=== PATIENT | male | born 1965 | race Two or more races ===

== ENCOUNTER 2019-01-19 08:46 | Inpatient (IN) | payer MEDICAID, OTHER ==
[2019-01-19] VITALS (31 sets, daily range): BP systolic 115–180; BP diastolic 1–63
[~2019-01-19] VITALS: Ht 170.2 cm; Wt 70.3 kg
[2019-01-19] MEDS ORDERED: SODIUM CHLORIDE 0.9% 1,000 ML IV ONE (09:45)
[2019-01-19] MEDS ORDERED: ONDANSETRON HCL 4 MG/2 ML VIAL IV ONE (09:45)
[2019-01-19] MEDS ORDERED: LABETALOL HCL 5 MG/ML ML 20ML VIAL IV ONE (09:45)
[2019-01-19 09:56] LABS: Basophils # (auto) 0 uL; Basophils % (auto) 0.5 % (0.0-2.0); Eosinophils # (auto) 0.1 uL; Eosinophils % (auto) 1.5 % (0.0-7.0); Hematocrit 32.2 % (41.0-53.0); Hemoglobin 11.3 g/dL (13.5-17.5); Lymphocytes # (auto) 1.5 uL; Lymphocytes % (auto) 28.3 % (10.0-50.0); Mean Corpuscular Hgb Conc. 35.1 g/dL (32.0-36.0); Monocytes # (auto) 0.5 uL; Monocytes % (auto) 10.2 % (0.0-12.0); Neutrophils # (auto) 3.2 uL; Neutrophils % (auto) 59.5 % (37.0-80.0); Nucleated Red Blood Cells % 0.1 %; Platelet Count (auto) 132 10^3/uL (140-450); Red Blood Cells 3.42 10^6/uL (4.5-5.90); Red Cell Distribution Width 13.9 % (11.8-14.3); White Blood Cell 5.3 10^3/uL (4.4-10.8)
[2019-01-19 10:02] LABS: Albumin 3.9 g/dL (3.4-5.0); BUN/Creatinine Ratio 5.5; Calcium 9.1 mg/dL (8.5-10.1); Potassium 3.5 mmol/L (3.5-5.1)
[2019-01-19 10:13] LABS: Bilirubin, Total 0.8 mg/dL (0.2-1.0); Total Protein 7.9 g/dL (6.4-8.2)
[2019-01-19] MEDS ORDERED: ENOXAPARIN SOD 80 MG/0.8ML SYRINGE SC ONE (11:15)
[2019-01-19] MEDS ORDERED: ONDANSETRON HCL 4 MG/2 ML VIAL IV PRN (11:30)
[2019-01-19] MEDS ORDERED: NITROGLYCERIN 0.4 MG SL TAB SL PRN (11:30)
[2019-01-19] MEDS ORDERED: MORPHINE SULF INJ 2 MG/ML SYRINGE 1ML IV PRN ×2 (11:30)
[2019-01-19] MEDS: SEVELAMER 800 MG TAB PO SCH ×2 (12:00→18:40)
[2019-01-19] MEDS ORDERED: NICARDIPINE 25MG/250ML BAG KIT 250 ML IV ONE (12:03)
[2019-01-19] MEDS ORDERED: DEXTROSE (50%) 50ML SYRG IV PRN (12:15)
[2019-01-19] MEDS: NICARDIPINE 25MG/250ML BAG KIT 250 ML IV SCH ×4 (12:15→21:30)
--- NOTE | 2019-01-19 15:10 | NUR ---
BLOOD PRESSURE: BLOOD PRESSURE INCREASED 174/86. INCREASED NICARDIPINE GTT TO 5MG/HR. WILL CONTINUE TO MONITOR. Addendum: 01/19/19 at 1735 by Lesley Casas RN NOT 1510, DONE AT 1610.
--- NOTE | 2019-01-19 15:38 | NUR ---
REPORT: REPORT RECEIVED FROM ER TO RESUME CARE OF PT.
--- NOTE | 2019-01-19 16:03 | NUR ---
ARRIVAL: PT ARRIVED FROM ER AND TRANSFERRED TO ROOM 109 IN ICU. PT BROUGHT VIA ER GURNEY, PORTABLE MONITOR, ALL BELONGINGS AND IV PUMP INFUSION. PT IS ALERT AND ORIENTED X4, MOSTLY [place] SPEAKING. ABLE TO TURN SELF AND REPOSITION SELF IN BED. TRANSFERRED FROM GURNEY TO BED ON OWN. FOLLOWING COMMANDS, DENIES ANY PAIN OR NEEDS AT TIME. ON 2L NC. IV TO RIGHT FOREARM, 20G SL. 2ND IV TO RIGHT FOREARM, 20G RUNNING NICARDIPINE GTT AT 2.5MG/HR. CONNECTED PT TO BEDSIDE MONITOR AND ALL VITAL SIGNS IN STABLE RANGE AT TIME. DENIES CHEST PAIN OR SHORTNESS OF BREATH AT TIME. SHARED POC WITH PT AND ABLE TO UNDERSTAND PLAN OF CARE FOR TIME. CALL LIGHT GIVEN AND IN REACH AND ABLE TO USE. CONTINUE CARE FOR SHIFT.
--- NOTE | 2019-01-19 17:00 | NUR ---
NAUSEA: PER ER REPORT, PATIENT HAVING NAUSEA. NO LONGER HAVING NAUSEA. PROVIDED ICE CHIPS, WATER AND JELLO PER REQUEST.
--- NOTE | 2019-01-19 17:00 | NUR ---
FAMILY: FAMILY IN AT BEDSIDE. UPDATED ON PT STATUS AND AWARE OF CURRENT FINDINGS. ALL QUESTIONS AND CONCERNS ADDRESSED. CONTACT INFORMATION OBTAINED AND PLACED IN CHART. DAUGHTER AT BEDSIDE, EDNA CR.
--- NOTE | 2019-01-19 17:19 | NUR ---
PRACTITIONER PAGE: PAGED BRANDIE HALEY IN REGARDS TO PATIENT HEADACHE AND REQUESTING TYLENOL. WAITING FOR CALL BACK.
--- NOTE | 2019-01-19 17:22 | NUR ---
PRACTITIONER CALL BACK: BRANDIE NUGENT NP CALLED BACK. UPDATED ON PT STATUS AND NEW ORDERS RECEIVED. PLAN TO CARRY OUT.
[2019-01-19] MEDS ORDERED: MORPHINE SULFATE 4 MG/ML SYR/VIAL IV PRN (17:30)
[2019-01-19] MEDS ORDERED: cloNIDine HCL 0.1 MG TAB PO ONE (17:30)
--- NOTE | 2019-01-19 17:44 | NUR ---
HEADACHE: PATIENT STATING THAT HE HAS A HEADACHE. PLAN TO MEDICATE PER ORDERS.
--- NOTE | 2019-01-19 18:30 | NUR ---
UPDATE: PATIENT RESTING WITHOUT ANY COMPLAINTS AT TIME. VITAL SIGNS IN STABLE RANGE AT TIME.
--- NOTE | 2019-01-19 18:35 | NUR ---
HOME MEDS: INSTRUCTED DAUGHTER TO BRING IN LIST OF HOME MEDICATIONS. WILL ATTEMPT TO BRING LIST IN TOMORROW.
--- NOTE | 2019-01-19 18:50 | NUR ---
CLOSING: PT REMAINS ALERT AND ORIENTED X4, OBEYS COMMANDS AND ABLE TO STILL TURN AND REPOSITION IN BED. PT SITTING UP IN BED, EATING DINNER ON OWN. MEDICATED WITH TYLENOL FOR HEADACHE AND ADDITIONAL MEDS PER MD ORDERS. URINAL AT BEDSIDE BUT PT HAS NOT VOIDED AT TIME. NICARDIPINE REMAINS AT 5MG/HR. ALL MONITORS HOOKED UP TO PT STILL AND CALL LIGHT IN REACH.
[2019-01-19] MEDS: ACCU-CHEK COMFORT CURVE STRIP VI SCH ×2 (18:52→22:00)
[2019-01-19] MEDS: InsuLIN REG 1unit/0.01ml Soln (100units/ml) SC SCH ×2 (18:52→22:00)
[2019-01-19] MEDS: ACETAMINOPHEN 500 MG TAB PO PRN (18:53)
--- NOTE | 2019-01-19 19:00 | NUR ---
FAMILY: FAMILY LEFT BEDSIDE.
--- NOTE | 2019-01-19 19:30 | NUR ---
REPORT: REPORT GIVEN TO HOOP MAKER RN TO RESUME CARE OF PT.
--- NOTE | 2019-01-19 19:30 | NUR ---
Opening Shift Note Received pt laying in bed watching TV. Nepali speaking only. Pt alert and oriented times four. Only complains of headache, denies nausea and vomiting at this time. Will medicate for pain PRN. On nicardipine gtt at 5mg/hr. Will titrate gtt to maintain sys blood pressure less than or equal to 140. 2 lpm nasal cannula, saturation 99% with clear lung sounds. 2 IVs to right FA 20 g. Both asymptomatic and patent. See IV spreadsheet for details. Abdomen soft flat and non-tender. Umbilical hernia noted. Denies chest pain at this time. No S/S of distress noted. Call light within reach will continue to monitor closely.
[2019-01-19] MEDS: METOPROLOL TARTRATE 50 MG TAB PO SCH (22:00)
[2019-01-19] MEDS: BENAZEPRIL HCL 10 MG TAB PO SCH (22:31)
[2019-01-20] VITALS (80 sets, daily range): BP systolic 103–198; BP diastolic 24–69
[2019-01-20] MEDS ORDERED: PROPOFOL 100 ML IV ONE (00:41)
--- NOTE | 2019-01-20 06:00 | NUR ---
Nicardipine gtt titrated off at this time. B/P 130/27. Will continue to monitor closely.
[2019-01-20] MEDS: InsuLIN REG 1unit/0.01ml Soln (100units/ml) SC SCH ×4 (07:00→22:11)
[2019-01-20] MEDS: ACCU-CHEK COMFORT CURVE STRIP VI SCH ×4 (07:22→22:11)
--- NOTE | 2019-01-20 07:23 | NUR ---
End of shift Report given to JAMIE Gray to assume care.
[2019-01-20] MEDS: NICARDIPINE 25MG/250ML BAG KIT 250 ML IV SCH ×3 (07:30→12:30)
--- NOTE | 2019-01-20 07:30 | NUR ---
REPORT REPORT RECEIVED FROM HILARY RNKHRIS. BEDSIDE CHECK DONE AND PT RESTING IN BED, DENIES ANY PAIN OR N/V.
--- NOTE | 2019-01-20 08:20 | NUR ---
ASSESSMENT PT AWAKE AND A/O X4. PT CITIZEN OF [place] SPEAKING ONLY. JAMIE RICK, IN TO ASSIST WITH TRANSLATION. PT ABLE TO MOVE ALL EXTREMITIES AND TURN SELF IN BED. DENIES ANY PAIN OR N/V. LUNGS CLEAR THROUGHOUT EXCEPT FOR INSPIRATORY CRACKLES IN THE LLL, POSTERIOR. O2 AT 2 L/M VIA NC WITH O2 SAT OF 99%. TELE SB [address] DEPRESSION IN LEADS I AND II. DENIES ANY PAIN. PALPABLE PULSES TO ALL EXTREMITIES. NO EDEMA NOTED. ABD SOFT WITH ACTIVE BOWEL SOUNDS. LAST BM WAS 01/18. PT IS MOSTLY ANURIC. AV FISTULA TO THE LEFT ARM WITH A + BRUIT AND THRILL. SKIN INTACT EXCEPT FOR ABRASIONS/SCABS TO RIGHT OWENS. SERVED BREAKFAST AND CONTINUE TO MONITOR .
--- NOTE | 2019-01-20 09:55 | NUR ---
ADMINISTERED SCHEDULED MEDS EXCEPT HELD METOPROLOL DUE TO HR OF 58. CURRENT BP OF 181/58.
[2019-01-20] MEDS: SEVELAMER 800 MG TAB PO SCH ×3 (09:56→18:38)
[2019-01-20] MEDS: METOPROLOL TARTRATE 50 MG TAB PO SCH ×2 (09:56→22:11)
[2019-01-20] MEDS: BENAZEPRIL HCL 10 MG TAB PO SCH (09:57)
--- NOTE | 2019-01-20 12:03 | NUR ---
PT RESTING IN BED AND DENIES PAIN, NAUSEA OR VOMITING. BP OF 137/53. ACCUCHECK OF 146 AND ADMINISTERED 2 UNITS OF REGULAR INSULIN SQ PER SLIDING SCALE COVERAGE.
--- NOTE | 2019-01-20 12:48 | NUR ---
DR CHESTER HERE IN THE ICU AND UPDATED ON THE PT'S CONDITION AND THAT WE HAVE NOT BEEN ADMINISTERING THE ORDERED METOPROLOL GERARDO TO HR 50'S. SHE STATED SHE WILL ORDER SOMETHING SHERICE FOR HIS ELEVATED BP. Addendum: 01/20/19 at 1306 by Marina Zuleta RN DR CHESTER AT BEDSIDE AND SPOKE WITH PT UTILIZING THEO, CT, TO TRANSLATE. WILL CHANGE DIET, ORDER CEAPCOL LOZENGES FOR C/O SORE THROAT AND ORDER SOMETHING ADDITIONAL FOR ELEVATED BP.
[2019-01-20] MEDS ORDERED: THROAT LOZENGES(CEPASTAT) MT PRN (13:15)
[2019-01-20] MEDS: hydrALAZINE HCL 25 MG TAB PO SCH ×2 (14:29→22:10)
--- NOTE | 2019-01-20 16:20 | NUR ---
RESTING QUIETLY WITH NO COMPLAINTS. LUNGS WITH INSPIRATORY CRACKLES STILL TO THE LEFT LOWER LOBE.
--- NOTE | 2019-01-20 16:47 | NUR ---
Discharge planning per consult, patient has orders for Home Health. Referral faxed to [facility]. Placed a follow up call, spoke with U[facility] and was advised they will accept this patient and start of care will be within 24-48 hours upon discharge. Obtained auth from [facility]-[id number]. Auth sent to [facility]. Addendum: 01/20/19 at 1649 by FLACA WEAVER Amended: Links added.
--- NOTE | 2019-01-20 17:06 | NUR ---
ACCUCHECK OF 106 AND NO COVERAGE NEEDED. PT DENIES ANY PAIN, SOB OR N/V. AT THE BEDSIDE.
[2019-01-20] MEDS ORDERED: NIFEdipine ER 30 MG TAB PO SCH (18:00)
--- NOTE | 2019-01-20 19:15 | NUR ---
REPORT REPORT GIVEN TO HILARY RNKHRIS. PT RESTING IN BED AND DENIES ANY DISCOMFORT.
--- NOTE | 2019-01-20 19:30 | NUR ---
Report received from day shift RN. Pt eating dinner in bed with no s/s of distress. Full assessment done see interventions. VSS. Instructed pt to call for assist PRN. Pt verbalized understanding.
--- NOTE | 2019-01-20 20:00 | NUR ---
Family at bedside. All questions and concerns addressed at this time.
[2019-01-20] MEDS: ACETAMINOPHEN 500 MG TAB PO PRN (20:08)
--- NOTE | 2019-01-20 21:30 | NUR ---
ELIMINATION PT REQUESTING TO GET UP AND USE THE BEDSIDE COMMODE. ASSESSED PT'S ABILITY TO STAND AND IF EXPERIENCING ANY DIZZINESS. PT DENIES DIZZINESS AND GAIT IS STEADY. ASSISTED PT TO BEDSIDE COMMODE AND ALLOWED PT PRIVACY. PT HAD 1 BM. ASSISTED BACK TO BED WITHOUT ANY PROBLEMS.
[2019-01-21] VITALS (25 sets, daily range): BP systolic 89–165; BP diastolic 40–129
[2019-01-21 04:41] LABS: BUN/Creatinine Ratio 6.6; Calcium 8.2 mg/dL (8.5-10.1); Potassium 5.5 mmol/L (3.5-5.1)
[2019-01-21] MEDS: hydrALAZINE HCL 25 MG TAB PO SCH ×2 (06:00→14:00)
[2019-01-21] MEDS: ACCU-CHEK COMFORT CURVE STRIP VI SCH ×2 (06:27→11:30)
[2019-01-21] MEDS: InsuLIN REG 1unit/0.01ml Soln (100units/ml) SC SCH ×2 (06:27→11:30)
--- NOTE | 2019-01-21 06:29 | NUR ---
DIALYSIS NURSE AT BEDSIDE, AWARE OF PT'S LOW BLOOD PRESSURE THROUGHOUT THE NIGHT. CURRENTLY 112/47.
[2019-01-21] MEDS ORDERED: SODIUM CHL 0.9% 1000 ML BAG XX ONE (07:00)
[2019-01-21] MEDS: SEVELAMER 800 MG TAB PO SCH ×2 (08:00→12:00)
[2019-01-21] MEDS ORDERED: BENAZEPRIL HCL 10 MG TAB PO SCH (10:00)
--- NOTE | 2019-01-21 11:21 | NUR ---
DIALYSIS NURSE AT BEDSIDE. BP STABLE IN 130'S. PT DENIES ANY DISCOMFORT AT THIS TIME.
--- NOTE | 2019-01-21 12:00 | NUR ---
DIALYSIS NURSE UNABLE TO ACCESS LEFT ARM AV FISTULA. PATIENT HAVING SEVERE PAIN TO LEFT ARM. TAPE RELEASED, NO BLEEDING NOTED. ICE PACK APPLIED TO LEFT ARM. COVERING NURSE CICI WILL ARRIVE IN 45MIN AND AWARE OF PATIENTS PAIN. POSITIVE BRUIT AND THRILL, SITE ASYMPTOMATIC, NO HEMATOMA OF ABNORMALITIES NOTED, ONLY TENDER TO TOUCH.
--- NOTE | 2019-01-21 12:52 | NUR ---
DR. AQUILES DOHERTY TO NOTIFIED OF HOME MEDICATION LIST CLARIFICATION PATIENT HAS HOME MED LIST. Addendum: 01/21/19 at 1549 by Olga Diaz RN HOME MEDICATION REVIEWED. SEE D/C ORDERS AND MEDIATION LIST TO CONTINUE.
[2019-01-21] MEDS ORDERED: FERR1TAB17 PO (13:03)
[2019-01-21] MEDS ORDERED: INSU1INJ19 SC (13:03)
[2019-01-21] MEDS ORDERED: ACET-1156 PO (13:03)
[2019-01-21] MEDS ORDERED: ATO40T PO (13:03)
[2019-01-21] MEDS ORDERED: SEVE800T8 PO (13:03)
[2019-01-21] MEDS ORDERED: AML5T PO (13:05)
[2019-01-21] MEDS ORDERED: CLON0.1T PO (13:05)
[2019-01-21] MEDS ORDERED: LISI-646 PO (13:10)
--- NOTE | 2019-01-21 13:50 | NUR ---
Left arm AV fistula distal to patient note to be tender with slight hematoma. Ice pack remains in place. Positive bruit and thrill. Will continue to monitor.
--- NOTE | 2019-01-21 14:00 | NUR ---
DR. KWAN UPDATED ON HOME MEDIATION LIST. AWARE LEFT ARM AV FISTULA IS INFILTRATED PER [facility] DIALYSIS NURSE. DIALYSIS TO BE HELD TODAY. DR. KWAN AWARE. CONTACTED DR. CHESTER WELL CCII RN. PER DR. CHESTER AND DR. KWAN PATIENT HAS BEEN ADDED ON LIST FOR DIALYSIS AT [facility] ON 01/22 AT 0800 AT [facility] ON [address]. PATIENT HAS RECEIVED A CONFIRMATION FROM [facility] VIA PHONE WHILE PRIMARY NURSE AT BEDSIDE FOR CHAIR TIME TOMORROW AT 0800.
--- NOTE | 2019-01-21 14:29 | NUR ---
[facility] CONTACTED [facility] CALLED TO DETERMINE IF THERE IS A CHAIR TIME FOR PATIENT TOMORROW WHILE ARM SWELLING SUBSIDES. [facility] STATING THEY WILL ACCEPT HIM FOR DIALYSIS AT 8 A.M AT HIS CENTER ON [address]. TOMORROW. KAYEXALATE TO BE GIVEN BEFORE D/C. Addendum: 01/21/19 at 1552 by Olga Diaz RN ERIN KAYEXALATE IS NOT AVAILABLE.
[2019-01-21] MEDS ORDERED: SODIUM ZIRCONIUM CYCL 10 GM PAK PO ONE (14:45)
[2019-01-21] MEDS: METOPROLOL TARTRATE 50 MG TAB PO SCH (15:26)
--- NOTE | 2019-01-21 15:52 | NUR ---
LEFT ARM CONTINUES TO BE SLIGHTLY TENDER, ICE PACK INSTRUCTED BY C[facility]I AYALA DIALYSIS NURSE TO APPLY ICE PK FOR 15 MIN ON AND 1HR OFF. PATIENT VERBALIZED UNDERSTANDING.
--- NOTE | 2019-01-21 15:53 | NUR ---
HOME PRESCRIPTION PROVIDED TO JESSICA SIGNIFICANT OTHER AT BEDSIDE TO GET MEDICATION FILLED AT [facility].
[2019-01-21] MEDS ORDERED: BENA-30 PO (16:10)
[2019-01-21] MEDS ORDERED: METO25TA5 PO (16:10)
[2019-01-21] MEDS ORDERED: HYDR50TA15 PO (16:11)
--- NOTE | 2019-01-21 16:52 | NUR ---
Discharge instructions given as ordered. Encourage to follow up with PMD as instructed. All questions and concerns addressed. Patient verbalized understanding. IV removed with catheter intact, pressure dressing applied. Patient taken to vehicle via wheelchair with all personal belongings, accompanied by staff and family member. No distress noted at time of departure. PATIENT NOTIFIED TO RETURN TO ER IF LEFT ARM WORSENS OR BECOMES MORE SWOLLEN. PT AND FAMILY VERBALIZED UNDERSTANDING. PAIN HAS SUBSIDED COMPARED TODAY.
== END 2019-01-21 16:52 | disposition home or self-care (01) | DRG 199 ==
LOC: EDBD 08:46 → ER 08:46 → TELE 08:47 → ICU WEST 15:04
PROVIDERS: ADMIT Nurse Practitioner Acute Care; ATTEND Hospitalist
DX: I16.9 Hypertensive crisis, unspecified (principal); D69.6 Thrombocytopenia, unspecified; E11.22 Type 2 diabetes mellitus with diabetic chronic kidney disease; I13.11 Hypertensive heart and chronic kidney disease without heart failure, with stage 5 chronic kidney disease, or end stage renal disease; N18.6 End stage renal disease; D63.8 Anemia in other chronic diseases classified elsewhere; E78.5 Hyperlipidemia, unspecified; M10.9 Gout, unspecified; Z99.2 Dependence on renal dialysis; Z79.4 Long term (current) use of insulin; Z91.19 Patient's noncompliance with other medical treatment and regimen
CPT/HCPCS: 36415; 74176; 80048; 80053; 82962; 83690; 84484; 85025; 87081; 93005; 93306; 94761; 96372; 96374; 96375; 99291; G0378; J1642; J1815; J2405; J2704

== ENCOUNTER 2019-05-08 18:34 | Inpatient (IN) | payer MEDICAID ==
[~2019-05-08] VITALS: Ht 162.6 cm; Wt 68.1 kg
[~2019-05-08 18:34] MED LIST: ACET-1156 PO; ATO40T PO; BENZ100C97 PO; CLON0.1T PO; FERR1TAB17 PO; HYDR50TA15 PO; INSU1INJ19 SC; METO25TA5 PO; NIFE1TAB31 PO; SEVE800T8 PO
[2019-05-08 19:35] LABS: Basophils # (auto) 0.1 uL; Basophils % (auto) 0.8 % (0.0-2.0); Eosinophils # (auto) 0.1 uL; Eosinophils % (auto) 1.2 % (0.0-7.0); Hematocrit 38.4 % (41.0-53.0); Hemoglobin 12.7 g/dL (13.5-17.5); Lymphocytes # (auto) 0.9 uL; Lymphocytes % (auto) 10.1 % (10.0-50.0); Mean Corpuscular Hemoglobin 32.4 pg (28.0-32.0); Mean Corpuscular Volume 98.3 fL (80.0-100.0); Monocytes # (auto) 0.6 uL; Monocytes % (auto) 6.6 % (0.0-12.0); Neutrophils # (auto) 7.1 uL; Neutrophils % (auto) 81.3 % (37.0-80.0); Nucleated Red Blood Cells % 0.1 %; Platelet Count (auto) 171 10^3/uL (140-450); Red Blood Cells 3.91 10^6/uL (4.5-5.90); Red Cell Distribution Width 14.9 % (11.8-14.3); White Blood Cell 8.8 10^3/uL (4.4-10.8)
[2019-05-08 19:45] LABS: INR 1.01 (0.9-1.15); Partial Thromboplastin Time 26.2 sec (23.64-32.05)
[2019-05-08 20:00] LABS: Albumin 4.2 g/dL (3.4-5.0); Calcium 9.2 mg/dL (8.5-10.1)
[2019-05-08 20:07] LABS: BUN/Creatinine Ratio 6.5
[2019-05-08 21:24] LABS: Potassium 7.3 mmol/L (3.5-5.1)
[2019-05-08] MEDS ORDERED: DEXTROSE (50%) 50ML SYRG IV ONE (22:00)
[2019-05-08] MEDS ORDERED: ALBUTEROL SULF 2.5 MG/0.5ML(0.5%) NEB SOLN NEB ONE (22:00)
[2019-05-08] MEDS ORDERED: InsuLIN REG 1unit/0.01ml Soln (100units/ml) IV ONE (22:00)
[2019-05-08] MEDS ORDERED: SODIUM BICARBONATE 8.4% INJ 50ML SYRINGE IV ONE (22:00)
[2019-05-08] MEDS ORDERED: CALCIUM GLUC 4.65meq/50ml D5AE 50 ML IV ONE (22:15)
[2019-05-08] MEDS ORDERED: SODIUM ZIRCONIUM CYCL 10 GM PAK PO ONE (22:15)
[2019-05-09] VITALS (7 sets, daily range): BP systolic 137–196; BP diastolic 63–94
[2019-05-09] MEDS ORDERED: FUROSEMIDE 40 MG/4 ML VIAL IV ONE (00:15)
[2019-05-09 01:01] LABS: Potassium 4.9 mmol/L (3.5-5.1)
[2019-05-09] MEDS ORDERED: DOCUSATE SOD 100 MG CAP PO PRN (01:30)
[2019-05-09] MEDS ORDERED: DEXTROSE (50%) 50ML SYRG IV PRN ×2 (01:30→12:30)
[2019-05-09] MEDS ORDERED: ACETAMINOPHEN 325 MG TAB PO PRN (01:30)
[2019-05-09] MEDS ORDERED: MORPHINE SULFATE 4 MG/ML SYR/VIAL IV PRN (01:30)
[2019-05-09] MEDS ORDERED: HYDROcodone-ACET 5/325MG TAB PO PRN (01:30)
[2019-05-09] MEDS ORDERED: cloNIDine HCL 0.1 MG TAB PO PRN (01:30)
[2019-05-09] MEDS ORDERED: ONDANSETRON HCL 4 MG/2 ML VIAL IV PRN (01:30)
[2019-05-09] MEDS: ACCU-CHEK COMFORT CURVE STRIP VI SCH ×4 (03:45→17:58)
[2019-05-09] MEDS ORDERED: NIFEdipine ER 30 MG TAB PO ONE (04:00)
[2019-05-09] MEDS: InsuLIN REG 1unit/0.01ml Soln (100units/ml) SC SCH ×5 (04:00→22:00)
[2019-05-09] MEDS ORDERED: hydrALAZINE HCL 25 MG TAB PO ONE (04:00)
[2019-05-09] MEDS ORDERED: METOPROLOL TARTRATE 25 MG TAB PO ONE (04:00)
[2019-05-09] MEDS ORDERED: BENZ100C97 PO (04:49)
[2019-05-09] MEDS ORDERED: FERR1TAB17 PO (04:49)
[2019-05-09] MEDS ORDERED: B-CO-5 PO (04:49)
[2019-05-09] MEDS ORDERED: BENA20TA14 PO (04:49)
[2019-05-09] MEDS ORDERED: MECL-87 PO (04:49)
[2019-05-09] MEDS ORDERED: ACET-1156 PO (04:49)
[2019-05-09] MEDS ORDERED: METO25TA5 PO (04:49)
[2019-05-09] MEDS ORDERED: AMLO10TA13 PO (04:49)
[2019-05-09] MEDS ORDERED: SPIR25TA8 PO (04:49)
[2019-05-09] MEDS ORDERED: CLON0.1T PO (04:49)
[2019-05-09] MEDS: hydrALAZINE HCL 25 MG TAB PO SCH ×3 (05:22→22:00)
[2019-05-09 08:03] LABS: Basophils # (auto) 0 uL; Basophils % (auto) 0.3 % (0.0-2.0); Eosinophils # (auto) 0 uL; Eosinophils % (auto) 0.8 % (0.0-7.0); Hematocrit 33.3 % (41.0-53.0); Hemoglobin 11.2 g/dL (13.5-17.5); Lymphocytes # (auto) 1.1 uL; Lymphocytes % (auto) 17.9 % (10.0-50.0); Mean Corpuscular Hemoglobin 32.9 pg (28.0-32.0); Mean Corpuscular Hgb Conc. 33.6 g/dL (32.0-36.0); Monocytes # (auto) 0.5 uL; Monocytes % (auto) 8.7 % (0.0-12.0); Neutrophils # (auto) 4.6 uL; Neutrophils % (auto) 72.3 % (37.0-80.0); Platelet Count (auto) 124 10^3/uL (140-450); White Blood Cell 6.3 10^3/uL (4.4-10.8)
[2019-05-09] MEDS: SEVELAMER 800 MG TAB PO SCH ×3 (08:13→17:59)
[2019-05-09 08:16] LABS: Calcium 9.1 mg/dL (8.5-10.1)
[2019-05-09 08:18] LABS: BUN/Creatinine Ratio 6.4
[2019-05-09 08:23] LABS: Potassium 6.3 mmol/L (3.5-5.1)
[2019-05-09] MEDS: METOPROLOL TARTRATE 25 MG TAB PO SCH ×2 (10:22→23:08)
[2019-05-09] MEDS: NIFEdipine ER 30 MG TAB PO SCH (10:22)
[2019-05-09] MEDS ORDERED: ENOXAPARIN SOD 80 MG/0.8ML SYRINGE SC ONE (12:30)
[2019-05-09] MEDS ORDERED: SODIUM CHL 0.9% 1000 ML BAG XX ONE (13:15)
[2019-05-09] MEDS ORDERED: ATORVASTATIN 20 MG TAB PO SCH (22:00)
[2019-05-10] MEDS: ACCU-CHEK COMFORT CURVE STRIP VI SCH ×3 (02:43→12:10)
[2019-05-10 05:22] VITALS: BP 131/60
[2019-05-10 06:01] LABS: Basophils # (auto) 0 uL; Basophils % (auto) 0.8 % (0.0-2.0); Eosinophils # (auto) 0.1 uL; Eosinophils % (auto) 1.5 % (0.0-7.0); Hematocrit 35.4 % (41.0-53.0); Hemoglobin 11.8 g/dL (13.5-17.5); Lymphocytes # (auto) 1.2 uL; Lymphocytes % (auto) 19.6 % (10.0-50.0); Mean Corpuscular Hemoglobin 32.9 pg (28.0-32.0); Mean Corpuscular Hgb Conc. 33.4 g/dL (32.0-36.0); Mean Corpuscular Volume 98.5 fL (80.0-100.0); Monocytes # (auto) 0.4 uL; Neutrophils # (auto) 4.5 uL; Neutrophils % (auto) 71.1 % (37.0-80.0); Nucleated Red Blood Cells % 0.1 %; Platelet Count (auto) 141 10^3/uL (140-450); Red Cell Distribution Width 14.9 % (11.8-14.3); White Blood Cell 6.3 10^3/uL (4.4-10.8)
[2019-05-10] MEDS: hydrALAZINE HCL 25 MG TAB PO SCH ×2 (06:09→14:32)
[2019-05-10] MEDS: InsuLIN REG 1unit/0.01ml Soln (100units/ml) SC SCH ×2 (06:09→11:30)
[2019-05-10 06:27] LABS: Potassium 5.4 mmol/L (3.5-5.1)
[2019-05-10 06:40] LABS: BUN/Creatinine Ratio 5.3; Calcium 8.8 mg/dL (8.5-10.1)
[2019-05-10] MEDS: SEVELAMER 800 MG TAB PO SCH ×2 (08:12→12:09)
[2019-05-10 09:00] VITALS: BP 103/53
[2019-05-10] MEDS ORDERED: SODIUM ZIRCONIUM CYCL 10 GM PAK PO ONE (09:15)
[2019-05-10] MEDS: METOPROLOL TARTRATE 25 MG TAB PO SCH (09:56)
[2019-05-10] MEDS: NIFEdipine ER 30 MG TAB PO SCH (09:57)
[2019-05-10 13:00] VITALS: BP 121/63
[2019-05-10 14:44] VITALS: BP 134/67
[2019-05-10 16:36] VITALS: BP 110/63
[2019-05-11] MEDS ORDERED: SODIUM CHL 0.9% 1000 ML BAG XX ONE (07:00)
== END 2019-05-10 17:00 | disposition home or self-care (01) | DRG 425 ==
LOC: ER 18:34 → TELE 18:35 → TELE-WESTW 05-09 02:59
PROVIDERS: ADMIT Hospitalist; ATTEND Internal Medicine
PROC: 5A1D70Z Performance of Urinary Filtration, Intermittent, Less than 6 Hours Per Day (ICD-10-PCS; principal; 2019-05-09)
DX: E87.5 Hyperkalemia (principal); I13.2 Hypertensive heart and chronic kidney disease with heart failure and with stage 5 chronic kidney disease, or end stage renal disease; E11.22 Type 2 diabetes mellitus with diabetic chronic kidney disease; N18.6 End stage renal disease; I50.33 Acute on chronic diastolic (congestive) heart failure; Z99.2 Dependence on renal dialysis; M79.605 Pain in left leg; E78.5 Hyperlipidemia, unspecified
CPT/HCPCS: 36415; 71045; 80048; 80053; 82962; 83036; 83880; 84132; 84484; 85025; 85610; 85730; 87081; 93005; 93971; 94640; 96365; 96375; G0378; J0610; J1642; J1815

== ENCOUNTER 2019-07-18 08:35 | Inpatient (IN) | payer MEDICAID, SELFPAY ==
[~2019-07-18] VITALS: Ht 162.6 cm; Wt 76.5 kg
[~2019-07-18 08:35] MED LIST changes: +AMLO10TA13 PO; -ATO40T PO; +B-CO-5 PO; +BENA20TA14 PO; -HYDR50TA15 PO; +MECL25TA18 PO; +SPIR25TA8 PO
[2019-07-18] MEDS ORDERED: PROCHLORPERAZINE EDISYLATE 5 MG/ML 2ML VIAL IV ONE (09:00)
[2019-07-18 09:59] LABS: Eosinophils # (auto) 0 10 ^3/uL (0-0.8); Eosinophils % (auto) 0.3 % (0.0-7.0); Lymphocytes # (auto) 0.3 10 ^3/uL (0.4-5.4); Mean Corpuscular Volume 101.4 fL (80.0-100.0)
[2019-07-18 10:00] LABS: Basophils # (auto) 0.1 10 ^3/uL (0-0.2); Basophils % (auto) 0.7 % (0.0-2.0); Hematocrit 31.3 % (41.0-53.0); Hemoglobin 10.4 g/dL (13.5-17.5); Lymphocytes % (auto) 4.1 % (10.0-50.0); Mean Corpuscular Hemoglobin 33.8 pg (28.0-32.0); Mean Corpuscular Hgb Conc. 33.4 g/dL (32.0-36.0); Monocytes # (auto) 0.5 10 ^3/uL (0-1.3); Monocytes % (auto) 5.5 % (0.0-12.0); Neutrophils # (auto) 7.4 10 ^3/uL (1.6-8.6); Neutrophils % (auto) 89.4 % (37.0-80.0); Platelet Count (auto) 152 10^3/uL (140-450); Red Blood Cells 3.08 10^6/uL (4.5-5.90); Red Cell Distribution Width 15.3 % (11.8-14.3); White Blood Cell 8.3 10^3/uL (4.4-10.8)
[2019-07-18 10:22] LABS: Albumin 3.6 g/dL (3.4-5.0); Calcium 9.3 mg/dL (8.5-10.1); Magnesium 2.9 mg/dL (1.6-2.6); Potassium 3.6 mmol/L (3.5-5.1)
[2019-07-18 10:29] LABS: BUN/Creatinine Ratio 5.2; Bilirubin, Total 1.3 mg/dL (0.2-1.0); Total Protein 7.2 g/dL (6.4-8.2)
[2019-07-18] MEDS ORDERED: NITROGLYCERIN 0.4 MG SL TAB SL PRN (12:00)
[2019-07-18] MEDS ORDERED: DEXTROSE (50%) 50ML SYRG IV PRN (12:00)
[2019-07-18] MEDS ORDERED: ONDANSETRON HCL 4 MG/2 ML VIAL IV PRN (12:00)
[2019-07-18] MEDS ORDERED: MORPHINE SULF INJ 2 MG/ML SYRINGE 1ML IV PRN ×2 (12:00)
[2019-07-18] MEDS ORDERED: HYDROcodone-ACET 5/325MG TAB PO PRN (12:00)
[2019-07-18] MEDS ORDERED: hydrALAZINE HCL 20 MG/ML VL IV PRN (12:00)
[2019-07-18] MEDS ORDERED: ACETAMINOPHEN 500 MG TAB PO PRN (12:00)
[2019-07-18] MEDS ORDERED: FAMOTIDINE 20 MG TAB PO ONE (12:30)
[2019-07-18] MEDS ORDERED: LISINOPRIL 10 MG TAB PO ONE (12:30)
[2019-07-18] MEDS ORDERED: METOPROLOL TARTRATE 25 MG TAB PO ONE (12:30)
[2019-07-18 13:36] LABS: Cholesterol 224 mg/dL (< 200); HDL Cholesterol 77 mg/dL (40-59); LDL Cholesterol 109 mg/dL (< 100); Triglycerides 165 mg/dL (< 150)
[2019-07-18 16:31] VITALS: BP 154/54
[2019-07-18] MEDS: ACCU-CHEK COMFORT CURVE STRIP VI SCH ×2 (19:06→23:20)
[2019-07-18] MEDS: InsuLIN REG 1unit/0.01ml Soln (100units/ml) SC SCH ×2 (19:06→22:00)
[2019-07-18 20:05] VITALS: BP 147/60
[2019-07-18] MEDS ORDERED: ATORVASTATIN 20 MG TAB PO SCH (22:00)
[2019-07-18] MEDS: METOPROLOL TARTRATE 25 MG TAB PO SCH (23:19)
[2019-07-19] MEDS: InsuLIN REG 1unit/0.01ml Soln (100units/ml) SC SCH ×2 (07:00→11:30)
[2019-07-19] MEDS: ACCU-CHEK COMFORT CURVE STRIP VI SCH ×2 (07:55→15:09)
[2019-07-19 09:00] VITALS: BP 132/46
[2019-07-19] MEDS: METOPROLOL TARTRATE 25 MG TAB PO SCH (09:14)
[2019-07-19] MEDS ORDERED: ASPirin 81 mg TAB PO SCH (10:00)
[2019-07-19] MEDS ORDERED: ASPirin-EC 81 mg tab PO SCH (10:00)
[2019-07-19] MEDS ORDERED: ISOSORBIDE MONONITRATE ER 60 MG TAB PO SCH (10:00)
[2019-07-19] MEDS ORDERED: LISINOPRIL 10 MG TAB PO SCH (10:00)
[2019-07-19] MEDS ORDERED: FAMOTIDINE 20 MG TAB PO SCH (10:00)
[2019-07-19 10:35] LABS: Basophils # (auto) 0.1 10 ^3/uL (0-0.2); Basophils % (auto) 0.9 % (0.0-2.0); Eosinophils # (auto) 0.1 10 ^3/uL (0-0.8); Eosinophils % (auto) 1.9 % (0.0-7.0); Hematocrit 31.1 % (41.0-53.0); Hemoglobin 10.4 g/dL (13.5-17.5); Lymphocytes # (auto) 1.4 10 ^3/uL (0.4-5.4); Mean Corpuscular Hemoglobin 34.2 pg (28.0-32.0); Mean Corpuscular Hgb Conc. 33.5 g/dL (32.0-36.0); Monocytes # (auto) 0.4 10 ^3/uL (0-1.3); Neutrophils # (auto) 4.2 10 ^3/uL (1.6-8.6); Neutrophils % (auto) 68.2 % (37.0-80.0); Platelet Count (auto) 155 10^3/uL (140-450); Red Blood Cells 3.05 10^6/uL (4.5-5.90); Red Cell Distribution Width 15.3 % (11.8-14.3); White Blood Cell 6.2 10^3/uL (4.4-10.8)
[2019-07-19 10:56] LABS: Calcium 8.6 mg/dL (8.5-10.1)
[2019-07-19 11:00] LABS: INR 1.02 (0.9-1.15); Partial Thromboplastin Time 27.4 sec (23.64-32.05)
[2019-07-19 11:01] LABS: BUN/Creatinine Ratio 5.8
[2019-07-19 17:03] VITALS: BP 152/67
== END 2019-07-19 18:02 | disposition home or self-care (01) | DRG 194 ==
LOC: EDBD 08:35 → ER 08:35 → TELE 08:36 → TELE-EAST 13:18
PROVIDERS: ADMIT Nurse Practitioner Acute Care; ATTEND Internal Medicine
DX: I13.2 Hypertensive heart and chronic kidney disease with heart failure and with stage 5 chronic kidney disease, or end stage renal disease (principal); I21.A1 Myocardial infarction type 2; E11.22 Type 2 diabetes mellitus with diabetic chronic kidney disease; N18.6 End stage renal disease; I07.1 Rheumatic tricuspid insufficiency; K52.9 Noninfective gastroenteritis and colitis, unspecified; I50.43 Acute on chronic combined systolic (congestive) and diastolic (congestive) heart failure; D63.8 Anemia in other chronic diseases classified elsewhere; E78.00 Pure hypercholesterolemia, unspecified; R79.89 Other specified abnormal findings of blood chemistry; R11.2 Nausea with vomiting, unspecified; Z99.2 Dependence on renal dialysis; Z88.8 Allergy status to other drugs, medicaments and biological substances; Z79.899 Other long term (current) drug therapy; Z83.3 Family history of diabetes mellitus
CPT/HCPCS: 36415; 71045; 80048; 80053; 80061; 82962; 83036; 83605; 83735; 84484; 85025; 85610; 85730; 86141; 87040; 87070; 87081; 87804; 87807; 87880; 93005; 93886; 96374; 99291; G0378; J1815

== ENCOUNTER 2019-09-21 11:34 | Inpatient (IN) | payer MEDICAID, SELFPAY ==
[~2019-09-21] VITALS: Ht 162.6 cm; Wt 63.2 kg
[2019-09-21] MEDS ORDERED: cloNIDine HCL 0.1 MG TAB ONE (11:52)
[2019-09-21] MEDS ORDERED: cloNIDine HCL 0.1 MG TAB PO ONE (12:00)
[2019-09-21 13:07] LABS: Basophils # (auto) 0 10 ^3/uL (0-0.2); Basophils % (auto) 0.4 % (0.0-2.0); Eosinophils # (auto) 0.1 10 ^3/uL (0-0.8); Eosinophils % (auto) 1.1 % (0.0-7.0); Hematocrit 33.2 % (41.0-53.0); Hemoglobin 11.1 g/dL (13.5-17.5); Lymphocytes # (auto) 0.5 10 ^3/uL (0.4-5.4); Lymphocytes % (auto) 9.5 % (10.0-50.0); Mean Corpuscular Hemoglobin 33.2 pg (28.0-32.0); Mean Corpuscular Hgb Conc. 33.5 g/dL (32.0-36.0); Mean Corpuscular Volume 99.1 fL (80.0-100.0); Monocytes # (auto) 0.4 10 ^3/uL (0-1.3); Monocytes % (auto) 8.3 % (0.0-12.0); Neutrophils # (auto) 4.1 10 ^3/uL (1.6-8.6); Neutrophils % (auto) 80.7 % (37.0-80.0); Platelet Count (auto) 101 10^3/uL (140-450); Red Blood Cells 3.35 10^6/uL (4.5-5.90); Red Cell Distribution Width 14.4 % (11.8-14.3); White Blood Cell 5.1 10^3/uL (4.4-10.8)
[2019-09-21 13:24] LABS: Potassium 4.3 mmol/L (3.5-5.1)
[2019-09-21 13:33] LABS: Albumin 3.9 g/dL (3.4-5.0); BUN/Creatinine Ratio 5.1; Bilirubin, Total 0.7 mg/dL (0.2-1.0); Calcium 9.6 mg/dL (8.5-10.1); Magnesium 3.4 mg/dL (1.6-2.6); Total Protein 7.8 g/dL (6.4-8.2)
[2019-09-21] MEDS ORDERED: ASPirin-EC 81 mg tab PO ONE (14:30)
[2019-09-21 15:14] LABS: INR 0.98 (0.9-1.15); Partial Thromboplastin Time 26.3 sec (23.64-32.05)
[2019-09-21] MEDS ORDERED: MORPHINE SULF INJ 2 MG/ML SYRINGE 1ML IV PRN ×2 (16:45)
[2019-09-21] MEDS ORDERED: DEXTROSE (50%) 50ML SYRG IV PRN (16:45)
[2019-09-21] MEDS ORDERED: HYDROcodone-ACET 5/325MG TAB PO PRN (16:45)
[2019-09-21] MEDS ORDERED: NITROGLYCERIN 0.4 MG SL TAB SL PRN (16:45)
[2019-09-21] MEDS ORDERED: ONDANSETRON HCL 4 MG/2 ML VIAL IV PRN (16:45)
[2019-09-21] MEDS ORDERED: hydrALAZINE HCL 20 MG/ML VL IV PRN (16:45)
[2019-09-21] MEDS ORDERED: ACETAMINOPHEN 500 MG TAB PO PRN (16:45)
[2019-09-21] MEDS: InsuLIN REG 1unit/0.01ml Soln (100units/ml) SC SCH ×2 (17:00→22:20)
[2019-09-21] MEDS: ACCU-CHEK COMFORT CURVE STRIP VI SCH ×2 (17:20→22:22)
[2019-09-21] MEDS: SEVELAMER 800 MG TAB PO SCH (18:51)
[2019-09-21 22:00] VITALS: BP 135/50
[2019-09-21] MEDS ORDERED: INSULIN LANTUS (GLARGINE) 1 /0.01ml (100units/ml) SC SCH (22:00)
[2019-09-21] MEDS ORDERED: ATORVASTATIN 20 MG TAB PO SCH (22:00)
[2019-09-21] MEDS ORDERED: METOPROLOL TARTRATE 25 MG TAB PO SCH (22:00)
--- NOTE | 2019-09-21 22:00 | NUR ---
Telemetry admit from PARAMJIT ORTEGA admitted to Telemetry unit after SBAR received. Patient oriented to Nishi Nieves, primary RN, unit, room, bed, and unit policies regarding patient care and visiting hours. Patient now on continuous telemetry monitoring, tele box # 79 and telemetry reading on arrival to unit is 60. Patient placed on bedside oxygen, weighed by bedscale and encouraged to call if they need something. All questions and concerns addressed, patient verbalized understanding. Note:
[2019-09-22 05:00] VITALS: BP 125/58
[2019-09-22 06:03] LABS: Basophils # (auto) 0 10 ^3/uL (0-0.2); Basophils % (auto) 0.5 % (0.0-2.0); Eosinophils # (auto) 0.1 10 ^3/uL (0-0.8); Eosinophils % (auto) 2.3 % (0.0-7.0); Hemoglobin 11.4 g/dL (13.5-17.5); Lymphocytes # (auto) 1.3 10 ^3/uL (0.4-5.4); Lymphocytes % (auto) 25.5 % (10.0-50.0); Mean Corpuscular Hemoglobin 33.4 pg (28.0-32.0); Mean Corpuscular Hgb Conc. 33.6 g/dL (32.0-36.0); Mean Corpuscular Volume 99.5 fL (80.0-100.0); Monocytes # (auto) 0.5 10 ^3/uL (0-1.3); Monocytes % (auto) 9.3 % (0.0-12.0); Neutrophils # (auto) 3.1 10 ^3/uL (1.6-8.6); Neutrophils % (auto) 62.4 % (37.0-80.0); Platelet Count (auto) 110 10^3/uL (140-450); Red Blood Cells 3.42 10^6/uL (4.5-5.90); Red Cell Distribution Width 14.2 % (11.8-14.3)
[2019-09-22] MEDS: ACCU-CHEK COMFORT CURVE STRIP VI SCH ×2 (06:06→11:30)
[2019-09-22] MEDS: InsuLIN REG 1unit/0.01ml Soln (100units/ml) SC SCH ×2 (06:06→11:30)
[2019-09-22 06:20] LABS: Potassium 5.4 mmol/L (3.5-5.1)
[2019-09-22 06:32] LABS: BUN/Creatinine Ratio 6.1; Calcium 9.5 mg/dL (8.5-10.1)
[2019-09-22 08:00] VITALS: BP 130/59
[2019-09-22] MEDS: SEVELAMER 800 MG TAB PO SCH ×2 (08:46→12:08)
[2019-09-22] MEDS ORDERED: LISINOPRIL 10 MG TAB PO SCH (10:00)
[2019-09-22] MEDS ORDERED: ASPirin-EC 81 mg tab PO SCH (10:00)
--- NOTE | 2019-09-22 13:40 | NUR ---
DR CONTRERAS ROUNDING
[2019-09-22 14:00] VITALS: BP 151/71
[2019-09-22] MEDS ORDERED: ASP81EC PO (14:54)
[2019-09-22] MEDS ORDERED: ATOR10TA52 PO (14:59)
[2019-09-22 15:53] VITALS: BP 151/71
--- NOTE | 2019-09-22 16:57 | NUR ---
Discharge instructions given as ordered. Encourage to follow up with PMD as instructed. All questions and concerns addressed. Patient verbalized understanding. Medication reconciliation form completed and copy given to patient. No Home medications held in Pharmacy and none to be returned to patient, and no needed vaccines given. IV removed with catheter intact, pressure dressing applied. Telemetry unit returned to ICU. Patient taken to vehicle via wheelchair with all personal belongings, accompanied by staff and family member. No distress noted at time of departure.
== END 2019-09-22 17:00 | disposition home or self-care (01) | DRG 470 ==
LOC: ER 11:34 → TELE 11:35 → TELE-WESTW 21:29
PROVIDERS: ADMIT Nurse Practitioner Acute Care; ATTEND Internal Medicine
DX: I12.0 Hypertensive chronic kidney disease with stage 5 chronic kidney disease or end stage renal disease (principal); I21.A1 Myocardial infarction type 2; D69.6 Thrombocytopenia, unspecified; E11.22 Type 2 diabetes mellitus with diabetic chronic kidney disease; N18.6 End stage renal disease; G62.9 Polyneuropathy, unspecified; R55 Syncope and collapse; Z99.2 Dependence on renal dialysis; D63.8 Anemia in other chronic diseases classified elsewhere; I16.9 Hypertensive crisis, unspecified; F41.9 Anxiety disorder, unspecified; Z79.4 Long term (current) use of insulin; Z83.3 Family history of diabetes mellitus; F32.9 Major depressive disorder, single episode, unspecified
CPT/HCPCS: 36415; 70450; 71045; 80048; 80053; 82962; 83036; 83735; 83880; 84484; 85025; 85610; 85730; 86141; 93005; 93306; 93886; G0378; J1815

== ENCOUNTER 2020-07-02 15:16 | Inpatient (IN) | payer MEDICAID ==
[~2020-07-02] VITALS: Ht 160 cm; Wt 68.0 kg
[~2020-07-02 15:16] MED LIST changes: +AMLO-496 PO; -AMLO10TA13 PO; +ASPI-394 PO; +ATOR10TA52 PO; -METO25TA5 PO; -SPIR25TA8 PO
[2020-07-02 16:27] LABS: Basophils # (auto) 0 10 ^3/uL (0-0.2); Basophils % (auto) 0.4 % (0.0-2.0); Eosinophils # (auto) 0.1 10 ^3/uL (0-0.8); Eosinophils % (auto) 1.7 % (0.0-7.0); Hemoglobin 12.2 g/dL (13.5-17.5); Lymphocytes # (auto) 0.8 10 ^3/uL (0.4-5.4); Lymphocytes % (auto) 13.9 % (10.0-50.0); Mean Corpuscular Hemoglobin 32.7 pg (28.0-32.0); Monocytes # (auto) 0.5 10 ^3/uL (0-1.3); Neutrophils # (auto) 4.4 10 ^3/uL (1.6-8.6); Nucleated Red Blood Cells % 0.1 %; Platelet Count (auto) 126 10^3/uL (140-450); Red Blood Cells 3.75 10^6/uL (4.5-5.90); Red Cell Distribution Width 14.5 % (11.8-14.3); White Blood Cell 5.8 10^3/uL (4.4-10.8)
[2020-07-02] MEDS ORDERED: HYDROcodone-ACET 10/325MG TAB PO ONE (16:30)
[2020-07-02] MEDS ORDERED: LABETALOL HCL 5 MG/ML 4ML SYRINGE IV ONE (16:30)
[2020-07-02] MEDS ORDERED: AZITHROMYCIN 500MG/ 250ML 250 ML IV ONE (16:30)
[2020-07-02] MEDS ORDERED: PIPERACILLIN-TAZOB 3.375GM 100 ML IV ONE (16:30)
[2020-07-02 16:44] LABS: Albumin 3.8 g/dL (3.4-5.0); Calcium 9.4 mg/dL (8.5-10.1); Potassium 4.1 mmol/L (3.5-5.1)
[2020-07-02 16:53] LABS: BUN/Creatinine Ratio 5.6; Bilirubin, Total 1.2 mg/dL (0.2-1.0); Total Protein 7.7 g/dL (6.4-8.2)
[2020-07-02] MEDS ORDERED: ENOXAPARIN SOD 80 MG/0.8ML SYRINGE SC ONE (17:15)
[2020-07-02] MEDS ORDERED: amLODIPine BESYLATE 5 MG TAB PO ONE (19:30)
[2020-07-02] MEDS ORDERED: hydrALAZINE HCL 25 MG TAB PO ONE (19:30)
[2020-07-02] MEDS ORDERED: ATORVASTATIN 20 MG TAB PO ONE (19:30)
[2020-07-02] MEDS ORDERED: DEXTROSE (50%) 50ML SYRG IV PRN (21:30)
[2020-07-02] MEDS ORDERED: MORPHINE SULF INJ 2 MG/ML SYRINGE 1ML IV PRN (21:30)
[2020-07-02] MEDS ORDERED: NITROGLYCERIN 0.4 MG SL TAB SL PRN (21:30)
[2020-07-02] MEDS: CARVEDILOL 3.125 MG TAB PO SCH (22:00)
[2020-07-02] MEDS ORDERED: ACETAMINOPHEN 325 MG TAB PO PRN (22:15)
[2020-07-02] MEDS: ISOSORBIDE DINITRATE 10 MG TAB PO SCH (22:25)
[2020-07-02] MEDS: ACCU-CHEK COMFORT CURVE STRIP VI SCH (23:52)
[2020-07-02] MEDS: InsuLIN REG 1unit/0.01ml Soln (100units/ml) SC SCH (23:57)
[2020-07-03] MEDS: InsuLIN REG 1unit/0.01ml Soln (100units/ml) SC SCH ×3 (06:00→17:29)
[2020-07-03] MEDS: ACCU-CHEK COMFORT CURVE STRIP VI SCH ×3 (06:04→17:29)
[2020-07-03 06:56] LABS: Basophils # (auto) 0 10 ^3/uL (0-0.2); Basophils % (auto) 0.6 % (0.0-2.0); Eosinophils # (auto) 0.1 10 ^3/uL (0-0.8); Hematocrit 34.1 % (41.0-53.0); Hemoglobin 11.5 g/dL (13.5-17.5); Lymphocytes # (auto) 1.4 10 ^3/uL (0.4-5.4); Mean Corpuscular Hemoglobin 32.5 pg (28.0-32.0); Mean Corpuscular Hgb Conc. 33.7 g/dL (32.0-36.0); Mean Corpuscular Volume 96.2 fL (80.0-100.0); Monocytes # (auto) 0.5 10 ^3/uL (0-1.3); Monocytes % (auto) 10.3 % (0.0-12.0); Neutrophils # (auto) 3.2 10 ^3/uL (1.6-8.6); Neutrophils % (auto) 61.1 % (37.0-80.0); Nucleated Red Blood Cells % 0.1 %; Platelet Count (auto) 134 10^3/uL (140-450); Red Blood Cells 3.55 10^6/uL (4.5-5.90); Red Cell Distribution Width 14.2 % (11.8-14.3); White Blood Cell 5.2 10^3/uL (4.4-10.8)
[2020-07-03 07:18] LABS: Calcium 9.2 mg/dL (8.5-10.1)
[2020-07-03] MEDS ORDERED: LIDOCAINE 2%HCL (LOCAL ANESTH.) INJ 20ML MDV ONE (07:31)
[2020-07-03] MEDS ORDERED: IODIXANOL 320MG/ML 100ML BTL IV ONE (07:31)
[2020-07-03 08:09] LABS: INR 1.07 (0.9-1.15); Partial Thromboplastin Time 28.8 sec (23.0-31.2)
[2020-07-03] MEDS ORDERED: VERAPAMIL 2.5MG/ML INJ 2ML VIAL IV ONE (08:29)
[2020-07-03] MEDS ORDERED: fentaNYL CITRATE 100 MCG/2 ML VL ONE (08:29)
[2020-07-03] MEDS ORDERED: ANGIOMAX 250 MG VIAL IV ONE (08:29)
[2020-07-03] MEDS ORDERED: SODIUM CHL 0.9% 0 ML ONE (08:30)
[2020-07-03] MEDS ORDERED: MIDAZOLAM HCL 1MG/1ML-2 ML VIAL ONE (08:30)
[2020-07-03] MEDS ORDERED: diphenhdrAMINE HCL 50 MG/1 ML VL ONE (08:44)
[2020-07-03] MEDS ORDERED: HEPARIN SODIUM (PORCINE) 5000 UNITS/ML 1ML VIAL ONE (08:56)
[2020-07-03] MEDS ORDERED: cefTRIAXone 1GM/50ML D5W 50 ML IV SCH (09:00)
[2020-07-03] MEDS: CARVEDILOL 3.125 MG TAB PO SCH (09:36)
[2020-07-03] MEDS: ISOSORBIDE DINITRATE 10 MG TAB PO SCH (09:37)
[2020-07-03] MEDS ORDERED: FUROSEMIDE 20 MG TAB PO SCH (10:00)
[2020-07-03] MEDS ORDERED: ASPirin 81 mg TAB PO SCH (10:00)
[2020-07-03] MEDS ORDERED: AZITHROMYCIN 500MG/ 250ML 250 ML IV SCH (10:00)
[2020-07-03 11:34] VITALS: BP 134/55
[2020-07-03 12:33] VITALS: BP 134/55
[2020-07-03] MEDS ORDERED: DOXY-338 PO (13:11)
[2020-07-03 16:40] VITALS: BP 139/69
[2020-07-03 16:56] VITALS: BP 132/56
[2020-07-03] MEDS ORDERED: ATORVASTATIN 20 MG TAB PO SCH (22:00)
== END 2020-07-03 18:50 | disposition home or self-care (01) | DRG 190 ==
LOC: ER 15:16 → TELE 21:23 → TELE-WESTW 07-03 11:45
PROVIDERS: ADMIT Hospitalist; ATTEND Hospitalist
PROC: 4A023N7 Measurement of Cardiac Sampling and Pressure, Left Heart, Percutaneous Approach (ICD-10-PCS; principal; 2020-07-03)
PROC: B211YZZ Fluoroscopy of Multiple Coronary Arteries using Other Contrast (ICD-10-PCS; 2020-07-03)
PROC: B215YZZ Fluoroscopy of Left Heart using Other Contrast (ICD-10-PCS; 2020-07-03)
DX: I21.4 Non-ST elevation (NSTEMI) myocardial infarction (principal); J18.9 Pneumonia, unspecified organism; N18.6 End stage renal disease; D63.1 Anemia in chronic kidney disease; E11.22 Type 2 diabetes mellitus with diabetic chronic kidney disease; E78.5 Hyperlipidemia, unspecified; I13.2 Hypertensive heart and chronic kidney disease with heart failure and with stage 5 chronic kidney disease, or end stage renal disease; I25.10 Atherosclerotic heart disease of native coronary artery without angina pectoris; I50.9 Heart failure, unspecified; Z20.822 Contact with and (suspected) exposure to COVID-19; F32.9 Major depressive disorder, single episode, unspecified; F41.9 Anxiety disorder, unspecified; Z88.0 Allergy status to penicillin; Z83.3 Family history of diabetes mellitus; Z99.2 Dependence on renal dialysis
CPT/HCPCS: 36415; 70450; 71046; 74176; 80048; 80053; 80061; 82962; 83036; 83605; 84484; 85025; 85610; 85730; 87040; 87081; 87426; 93005; 93306; 96365; 96367; 96372; 99152; 99291; G0378; J0696; J1815; J2250; J2543; J3490; Q9967

== ENCOUNTER 2020-07-12 19:40 | Emergency (ER) | payer MEDICAID ==
[~2020-07-12] VITALS: Ht 167.6 cm; Wt 68.0 kg
[~2020-07-12 19:40] MED LIST changes: +DOXY-338 PO
[2020-07-12 20:49] VITALS: BP 164/70
== END 2020-07-12 20:37 | disposition home or self-care (01) ==
LOC: ER 19:40 → EDBD 19:40 → ER 20:37
DX: T81.31XA Disruption of external operation (surgical) wound, not elsewhere classified, initial encounter (principal); E11.22 Type 2 diabetes mellitus with diabetic chronic kidney disease; I13.2 Hypertensive heart and chronic kidney disease with heart failure and with stage 5 chronic kidney disease, or end stage renal disease; N18.6 End stage renal disease; I50.9 Heart failure, unspecified; E78.5 Hyperlipidemia, unspecified
CPT/HCPCS: 99283; J7030; J7040

== ENCOUNTER 2020-10-22 04:23 | Emergency (ER) | payer MEDICAID ==
[~2020-10-22] VITALS: Ht 162.6 cm; Wt 70.8 kg
[2020-10-22 06:34] LABS: Basophils # (auto) 0.1 10 ^3/uL (0-0.2); Eosinophils # (auto) 0.2 10 ^3/uL (0-0.8); Hemoglobin 11.7 g/dL (13.5-17.5); Mean Corpuscular Hemoglobin 34.7 pg (28.0-32.0); Mean Corpuscular Hgb Conc. 34.1 g/dL (32.0-36.0); Mean Corpuscular Volume 101.8 fL (80.0-100.0); Monocytes # (auto) 0.5 10 ^3/uL (0-1.3)
[2020-10-22 06:35] LABS: Basophils % (auto) 0.7 % (0.0-2.0); Eosinophils % (auto) 2.7 % (0.0-7.0); Hematocrit 34.3 % (41.0-53.0); Lymphocytes # (auto) 1.6 10 ^3/uL (0.4-5.4); Lymphocytes % (auto) 20.1 % (10.0-50.0); Monocytes % (auto) 6.6 % (0.0-12.0); Neutrophils # (auto) 5.5 10 ^3/uL (1.6-8.6); Neutrophils % (auto) 69.9 % (37.0-80.0); Red Blood Cells 3.37 10^6/uL (4.5-5.90); Red Cell Distribution Width 14.8 % (11.8-14.3); White Blood Cell 7.8 10^3/uL (4.4-10.8)
[2020-10-22 06:49] LABS: Albumin 4.4 g/dL (3.4-5.0)
[2020-10-22 06:54] LABS: BUN/Creatinine Ratio 7.1; Bilirubin, Total 0.6 mg/dL (0.2-1.0); Total Protein 7.8 g/dL (6.4-8.2)
[2020-10-22 06:58] LABS: Potassium 6.8 mmol/L (3.5-5.1)
[2020-10-22] MEDS ORDERED: DEXTROSE (50%) 50ML SYRG IV ONE (07:15)
[2020-10-22] MEDS ORDERED: InsuLIN REG 1unit/0.01ml Soln (100units/ml) IV ONE (07:15)
[2020-10-22] MEDS ORDERED: SODIUM BICARBONATE 8.4% INJ 50ML SYRINGE IV ONE (07:15)
[2020-10-22] MEDS ORDERED: CALCIUM GLUC 1,000mg/50ml-NS 50 ML IV ONE (07:15)
[2020-10-22] MEDS ORDERED: FUROSEMIDE 20 MG/2 ML VIAL IV ONE (07:15)
[2020-10-22] MEDS ORDERED: SODIUM ZIRCONIUM CYCL 10 GM PAK PO ONE (07:15)
[2020-10-22] MEDS ORDERED: ALBUTEROL SULF 2.5 MG/0.5ML(0.5%) NEB SOLN NEB ONE (07:15)
[2020-10-22 14:20] VITALS: BP 128/52
== END 2020-10-22 15:48 | disposition home or self-care (01) ==
LOC: ER 04:23
DX: R42 Dizziness and giddiness (principal); E87.5 Hyperkalemia; N18.6 End stage renal disease; E11.22 Type 2 diabetes mellitus with diabetic chronic kidney disease; I12.0 Hypertensive chronic kidney disease with stage 5 chronic kidney disease or end stage renal disease; Z99.2 Dependence on renal dialysis; Z20.822 Contact with and (suspected) exposure to COVID-19
CPT/HCPCS: 36415; 70450; 80053; 82962; 84132; 85025; 85049; 87426; 93005; 94640; 96365; 96375; 99285; J0610; J1815; J1940; J7042

== ENCOUNTER 2021-03-10 10:31 | Inpatient (IN) | payer MEDICAID ==
[~2021-03-10] VITALS: Ht 167.6 cm; Wt 81.2 kg
[2021-03-10 11:42] LABS: Basophils # (auto) 0.1 10 ^3/uL (0-0.2); Basophils % (auto) 0.7 % (0.0-2.0); Eosinophils # (auto) 0.1 10 ^3/uL (0-0.8); Eosinophils % (auto) 1.7 % (0.0-7.0); Hematocrit 26.9 % (41.0-53.0); Hemoglobin 8.8 g/dL (13.5-17.5); Lymphocytes # (auto) 0.9 10 ^3/uL (0.4-5.4); Lymphocytes % (auto) 11.6 % (10.0-50.0); Mean Corpuscular Hemoglobin 32.6 pg (28.0-32.0); Mean Corpuscular Hgb Conc. 32.6 g/dL (32.0-36.0); Mean Corpuscular Volume 99.7 fL (80.0-100.0); Monocytes # (auto) 0.3 10 ^3/uL (0-1.3); Monocytes % (auto) 4.1 % (0.0-12.0); Neutrophils # (auto) 6.7 10 ^3/uL (1.6-8.6); Neutrophils % (auto) 81.9 % (37.0-80.0); Nucleated Red Blood Cells % 0.1 %; Red Blood Cells 2.69 10^6/uL (4.5-5.90); Red Cell Distribution Width 14.2 % (11.8-14.3); White Blood Cell 8.2 10^3/uL (4.4-10.8)
[2021-03-10 11:52] LABS: Calcium 10.5 mg/dL (8.5-10.1); Potassium 4.2 mmol/L (3.5-5.1)
[2021-03-10 11:59] LABS: Bilirubin, Total 0.9 mg/dL (0.2-1.0); Total Protein 7.2 g/dL (6.4-8.2)
[2021-03-10 12:06] LABS: Magnesium 4.4 mg/dL (1.6-2.6)
[2021-03-10] MEDS ORDERED: FUROSEMIDE 40 MG/4 ML VIAL IV ONE (14:00)
[2021-03-10] MEDS ORDERED: SODIUM CHLORIDE 0.9% 1,000 ML IV ONE (14:00)
[2021-03-10] MEDS ORDERED: cefTRIAXone 1GM/50ML D5W 50 ML IV ONE (14:00)
[2021-03-10] MEDS ORDERED: ASPirin 81 mg TAB PO ONE (14:00)
[2021-03-10 14:40] LABS: INR 1.04 (0.9-1.15); Partial Thromboplastin Time 25.2 sec (23.6-33.0)
[2021-03-10] MEDS ORDERED: ENOXAPARIN SOD 60 MG/0.6 ML SYRINGE SC ONE (16:45)
[2021-03-10] MEDS ORDERED: IOHEXOL 350 MG/ML 100ML IJ ONE (17:41)
[2021-03-10] MEDS ORDERED: DOCUSATE CALCIUM 240 MG CAP PO PRN (19:45)
[2021-03-10] MEDS ORDERED: LABETALOL HCL 5 MG/ML 4ML SYRINGE IV PRN (19:45)
[2021-03-10] MEDS ORDERED: ACETAMINOPHEN 500 MG TAB PO PRN (19:45)
[2021-03-10] MEDS ORDERED: MORPHINE SULFATE INJECTION 2 MG/ML SYRG IV PRN ×2 (19:45)
[2021-03-10] MEDS ORDERED: ONDANSETRON HCL 4 MG/2 ML VIAL IV PRN (19:45)
[2021-03-10] MEDS ORDERED: NITROGLYCERIN 0.4 MG SL TAB SL PRN (19:45)
[2021-03-10] MEDS ORDERED: DEXTROSE (50%) 50ML SYRG IV PRN (20:00)
[2021-03-10 21:00] VITALS: BP 134/58
[2021-03-10] MEDS: METOPROLOL TARTRATE 25 MG TAB PO SCH (23:05)
[2021-03-11] MEDS: ACCU-CHEK COMFORT CURVE STRIP VI SCH ×5 (00:10→23:56)
[2021-03-11] MEDS: InsuLIN REG 1unit/0.01ml Soln (100units/ml) SC SCH ×5 (00:12→23:56)
[2021-03-11 01:25] LABS: Hematocrit 25.5 % (41.0-53.0); Hemoglobin 8.5 g/dL (13.5-17.5)
[2021-03-11 01:26] LABS: Hemoglobin 8.3 g/dL (13.5-17.5)
[2021-03-11 01:28] LABS: Hematocrit 24.6 % (41.0-53.0)
[2021-03-11] MEDS ORDERED: PNEUMOCOCCAL VACC POLYS 25 MCG/0.5 ML VIAL IM ONE (02:00)
[2021-03-11] MEDS ORDERED: ATOR40TA52 PO (04:11)
[2021-03-11] MEDS ORDERED: ALOG1TAB PO (04:11)
[2021-03-11] MEDS ORDERED: DIPH25CA66 PO (04:11)
[2021-03-11] MEDS ORDERED: HYDR50TA15 PO (04:11)
[2021-03-11] MEDS ORDERED: SODI10PA PO (04:11)
[2021-03-11] MEDS ORDERED: B-CO-5 PO (04:11)
[2021-03-11 05:00] VITALS: BP 112/63
[2021-03-11] MEDS ORDERED: guaiFENesin-DM 100/10mg/5ml SYR PO PRN (06:00)
[2021-03-11 06:11] LABS: Basophils # (auto) 0.1 10 ^3/uL (0-0.2); Eosinophils # (auto) 0.2 10 ^3/uL (0-0.8); Eosinophils % (auto) 1.5 % (0.0-7.0); Hematocrit 28.3 % (41.0-53.0); Hemoglobin 9.2 g/dL (13.5-17.5); Lymphocytes % (auto) 8.1 % (10.0-50.0); Mean Corpuscular Hgb Conc. 32.6 g/dL (32.0-36.0); Mean Corpuscular Volume 101.3 fL (80.0-100.0); Monocytes # (auto) 0.5 10 ^3/uL (0-1.3); Monocytes % (auto) 3.7 % (0.0-12.0); Neutrophils # (auto) 10.6 10 ^3/uL (1.6-8.6); Neutrophils % (auto) 85.7 % (37.0-80.0); Nucleated Red Blood Cells % 0.1 %; Red Cell Distribution Width 14.5 % (11.8-14.3); White Blood Cell 12.4 10^3/uL (4.4-10.8)
[2021-03-11 06:21] LABS: Calcium 9.8 mg/dL (8.5-10.1); Potassium 4.6 mmol/L (3.5-5.1)
[2021-03-11 06:30] LABS: BUN/Creatinine Ratio 7.6; Bilirubin, Total 0.8 mg/dL (0.2-1.0); Total Protein 7.3 g/dL (6.4-8.2)
[2021-03-11 06:56] LABS: Magnesium 4.7 mg/dL (1.6-2.6)
[2021-03-11] MEDS: ALBUTEROL SULF 2.5 MG/0.5ML(0.5%) NEB SOLN NEB PRN ×2 (07:09→20:19)
[2021-03-11] MEDS: IPRATROPIUM BROM 0.5 MG/2.5ML INH SOL NEB PRN ×2 (07:09→20:19)
[2021-03-11 08:47] LABS: Hematocrit 26.9 % (41.0-53.0); Hemoglobin 8.9 g/dL (13.5-17.5)
[2021-03-11 09:00] VITALS: BP 136/69
[2021-03-11] MEDS: ENOXAPARIN SOD 30 MG/0.3 ML SYRINGE SC SCH (10:01)
[2021-03-11] MEDS: METOPROLOL TARTRATE 25 MG TAB PO SCH ×2 (10:01→22:27)
[2021-03-11] MEDS: PANTOPRAZOLE 40 MG TAB PO SCH (10:01)
[2021-03-11 13:00] VITALS: BP 128/67
[2021-03-11 13:40] LABS: Hematocrit 27.5 % (41.0-53.0)
[2021-03-11 17:00] VITALS: BP 117/72
[2021-03-11 19:30] LABS: Hematocrit 26.8 % (41.0-53.0); Hemoglobin 8.7 g/dL (13.5-17.5)
[2021-03-11 22:00] VITALS: BP 130/72
[2021-03-12 05:00] VITALS: BP 125/58
[2021-03-12 05:40] LABS: Basophils # (auto) 0.1 10 ^3/uL (0-0.2); Basophils % (auto) 1.2 % (0.0-2.0); Eosinophils # (auto) 0.2 10 ^3/uL (0-0.8); Hematocrit 28.2 % (41.0-53.0); Hemoglobin 9.1 g/dL (13.5-17.5); Lymphocytes # (auto) 0.9 10 ^3/uL (0.4-5.4); Lymphocytes % (auto) 9.6 % (10.0-50.0); Mean Corpuscular Hemoglobin 32.3 pg (28.0-32.0); Mean Corpuscular Hgb Conc. 32.4 g/dL (32.0-36.0); Mean Corpuscular Volume 99.9 fL (80.0-100.0); Monocytes # (auto) 0.4 10 ^3/uL (0-1.3); Neutrophils # (auto) 7.4 10 ^3/uL (1.6-8.6); Neutrophils % (auto) 83.2 % (37.0-80.0); Nucleated Red Blood Cells % 0.1 %; Red Blood Cells 2.83 10^6/uL (4.5-5.90); Red Cell Distribution Width 14.8 % (11.8-14.3); White Blood Cell 8.9 10^3/uL (4.4-10.8)
[2021-03-12 05:56] LABS: BUN/Creatinine Ratio 8.1; Calcium 9.4 mg/dL (8.5-10.1)
[2021-03-12] MEDS: InsuLIN REG 1unit/0.01ml Soln (100units/ml) SC SCH ×3 (06:00→17:36)
[2021-03-12] MEDS: ACCU-CHEK COMFORT CURVE STRIP VI SCH ×3 (06:01→17:35)
[2021-03-12 06:26] LABS: Urine Bacteria FEW /hpf (None Seen); Urine Blood 1+ /uL (Negative); Urine Mucus FEW (None Seen); Urine Specific Gravity 1.018 (1.001-1.035); Urine WBC 142 /hpf (0 - 3); Urine WBC Clumps PRESENT /hpf (None Seen)
[2021-03-12] MEDS ORDERED: SODIUM CHL 0.9% 1000 ML BAG XX ONE (07:00)
[2021-03-12] MEDS: IPRATROPIUM BROM 0.5 MG/2.5ML INH SOL NEB PRN ×2 (07:12→18:49)
[2021-03-12] MEDS: ALBUTEROL SULF 2.5 MG/0.5ML(0.5%) NEB SOLN NEB PRN ×2 (07:12→18:49)
[2021-03-12 09:18] VITALS: BP 139/72
[2021-03-12] MEDS: PANTOPRAZOLE 40 MG TAB PO SCH (10:08)
[2021-03-12] MEDS: ENOXAPARIN SOD 30 MG/0.3 ML SYRINGE SC SCH (10:09)
[2021-03-12] MEDS: METOPROLOL TARTRATE 25 MG TAB PO SCH (10:09)
[2021-03-12 13:22] VITALS: BP 118/71
[2021-03-12 16:39] VITALS: BP 138/59
[2021-03-12] MEDS ORDERED: BENA5TAB9 PO (17:01)
[2021-03-12] MEDS ORDERED: METO25TA5 PO (17:01)
[2021-03-12] MEDS ORDERED: PANTOPRAZOLE 40 MG/10 ML VIAL INJ IV ONE (17:30)
[2021-03-12] MEDS ORDERED: ALPRAZolam 0.25 MG TAB PO ONE (17:30)
[2021-03-12 18:21] VITALS: BP 138/59
[2021-03-12 18:30] LABS: BUN/Creatinine Ratio 6.7; Calcium 9.2 mg/dL (8.5-10.1); Potassium 4.5 mmol/L (3.5-5.1)
[2021-03-12] MEDS ORDERED: EPOETIN ALFA-EPBX 4,000 UNIT/ML VIAL SC ONE (21:00)
[2021-03-12] MEDS ORDERED: METOPROLOL TARTRATE 25 MG TAB PO SCH (22:00)
[2021-03-13] MEDS ORDERED: BENAZEPRIL HCL 10 MG TAB PO SCH (10:00)
== END 2021-03-12 21:00 | disposition home or self-care (01) | DRG 194 ==
LOC: EDBD 10:31 → ER 10:31 → TELE 19:36 → TELE-WESTW 21:50
PROVIDERS: ADMIT Family Medicine; ATTEND Internal Medicine
DX: I13.2 Hypertensive heart and chronic kidney disease with heart failure and with stage 5 chronic kidney disease, or end stage renal disease (principal); J96.00 Acute respiratory failure, unspecified whether with hypoxia or hypercapnia; I21.A1 Myocardial infarction type 2; E44.0 Moderate protein-calorie malnutrition; J91.8 Pleural effusion in other conditions classified elsewhere; D63.8 Anemia in other chronic diseases classified elsewhere; E83.41 Hypermagnesemia; D63.1 Anemia in chronic kidney disease; I42.9 Cardiomyopathy, unspecified; N18.6 End stage renal disease; E11.22 Type 2 diabetes mellitus with diabetic chronic kidney disease; I15.2 Hypertension secondary to endocrine disorders; E78.5 Hyperlipidemia, unspecified; J98.11 Atelectasis; Z20.822 Contact with and (suspected) exposure to COVID-19; Z79.4 Long term (current) use of insulin; Z83.3 Family history of diabetes mellitus; Z99.2 Dependence on renal dialysis; Z88.8 Allergy status to other drugs, medicaments and biological substances; Z68.28 Body mass index [BMI] 28.0-28.9, adult; I50.23 Acute on chronic systolic (congestive) heart failure
CPT/HCPCS: 36415; 71045; 71275; 80048; 80053; 81001; 82962; 83036; 83605; 83735; 83880; 84100; 84443; 84484; 85014; 85018; 85025; 85379; 85610; 85730; 86850; 86900; 86901; 87040; 87081; 87426; 90935; 93005; 93970; 94640; 96361; 96365; 96372; 96375; 99291; C9113; G0378; J0696; J1815

== ENCOUNTER 2021-09-23 13:48 | Inpatient (IN) | payer MEDICAID ==
[~2021-09-23] VITALS: Ht 162.6 cm; Wt 72.2 kg
[~2021-09-23 13:48] MED LIST changes: +ALOG1TAB PO; -AMLO-496 PO; -ASPI-394 PO; -ATOR10TA52 PO; +ATOR40TA52 PO; -BENA20TA14 PO; +BENA5TAB9 PO; -BENZ100C97 PO; -CLON0.1T PO; +DIPH25CA66 PO; -DOXY-338 PO; -INSU1INJ19 SC; +METO25TA5 PO; -NIFE1TAB31 PO
[2021-09-23] MEDS ORDERED: PROCHLORPERAZINE EDISYLATE 5 MG/ML 2ML VIAL IV ONE (14:15)
[2021-09-23 15:26] LABS: Basophils # (auto) 0.1 10 ^3/uL (0-0.2); Eosinophils # (auto) 0 10 ^3/uL (0-0.8); Eosinophils % (auto) 0.3 % (0.0-7.0); Hematocrit 39.6 % (41.0-53.0); Hemoglobin 13.4 g/dL (13.5-17.5); Lymphocytes # (auto) 0.4 10 ^3/uL (0.4-5.4); Lymphocytes % (auto) 6.3 % (10.0-50.0); Mean Corpuscular Hemoglobin 32.9 pg (28.0-32.0); Mean Corpuscular Hgb Conc. 33.9 g/dL (32.0-36.0); Mean Corpuscular Volume 97.1 fL (80.0-100.0); Monocytes # (auto) 0.3 10 ^3/uL (0-1.3); Monocytes % (auto) 4.5 % (0.0-12.0); Neutrophils # (auto) 5.4 10 ^3/uL (1.6-8.6); Neutrophils % (auto) 86.9 % (37.0-80.0); Nucleated Red Blood Cells % 0.1 %; Red Blood Cells 4.08 10^6/uL (4.5-5.90); Red Cell Distribution Width 15.3 % (11.8-14.3); White Blood Cell 6.3 10^3/uL (4.4-10.8)
[2021-09-23 15:27] LABS: INR 1.06 (0.9-1.15); Partial Thromboplastin Time 28.5 sec (23.6-33.0)
[2021-09-23 15:28] LABS: Calcium 10.3 mg/dL (8.5-10.1); Potassium 4.3 mmol/L (3.5-5.1)
[2021-09-23 15:31] LABS: BUN/Creatinine Ratio 6.3; Bilirubin, Total 0.9 mg/dL (0.2-1.0); Total Protein 8.3 g/dL (6.4-8.2)
[2021-09-24] MEDS ORDERED: DEXTROSE (50%) 50ML SYRG IV PRN (00:30)
[2021-09-24] MEDS ORDERED: MORPHINE SULFATE INJ 2 MG/ml SYRG IV PRN ×2 (00:30)
[2021-09-24] MEDS ORDERED: NITROGLYCERIN 0.4 MG SL TAB SL PRN (00:30)
[2021-09-24] MEDS ORDERED: ONDANSETRON HCL 4 MG/2 ML VIAL IV PRN (00:30)
[2021-09-24] MEDS: SODIUM CHLORIDE 0.9% 1,000 ML IV SCH ×3 (02:46→17:17)
[2021-09-24 05:45] LABS: Basophils # (auto) 0 10 ^3/uL (0-0.2); Eosinophils # (auto) 0.1 10 ^3/uL (0-0.8); Eosinophils % (auto) 1.8 % (0.0-7.0); Hematocrit 38.4 % (41.0-53.0); Lymphocytes # (auto) 0.7 10 ^3/uL (0.4-5.4); Mean Corpuscular Hemoglobin 32.8 pg (28.0-32.0); Mean Corpuscular Hgb Conc. 33.8 g/dL (32.0-36.0); Monocytes # (auto) 0.3 10 ^3/uL (0-1.3); Monocytes % (auto) 9.2 % (0.0-12.0); Neutrophils # (auto) 2.5 10 ^3/uL (1.6-8.6); Nucleated Red Blood Cells % 0.2 %; Red Blood Cells 3.96 10^6/uL (4.5-5.90); Red Cell Distribution Width 15.6 % (11.8-14.3); White Blood Cell 3.7 10^3/uL (4.4-10.8)
[2021-09-24 05:55] LABS: BUN/Creatinine Ratio 6.4; Calcium 9.7 mg/dL (8.5-10.1); Potassium 4.7 mmol/L (3.5-5.1)
[2021-09-24] MEDS: ACCU-CHEK COMFORT CURVE STRIP VI SCH ×4 (05:57→23:27)
[2021-09-24] MEDS: InsuLIN REG 1unit/0.01ml Soln (100units/ml) SC SCH ×3 (05:57→18:00)
[2021-09-24] MEDS: SEVELAMER 800 MG TAB PO SCH ×3 (08:07→18:03)
[2021-09-24 09:08] VITALS: BP 151/67
[2021-09-24] MEDS ORDERED: ADENOSINE 61 MG in GIVE UN-DILUTED 0 ML IV ONE (09:45)
[2021-09-24] MEDS: HEPARIN SODIUM (PORCINE) 5000 UNITS/ML 1ML VIAL SC SCH ×2 (10:26→23:29)
[2021-09-24] MEDS: ASPirin-EC 81 mg tab PO SCH (10:26)
[2021-09-24] MEDS: BENAZEPRIL HCL 10 MG TAB PO SCH (10:27)
[2021-09-24] MEDS: METOPROLOL TARTRATE 25 MG TAB PO SCH ×2 (10:27→23:28)
[2021-09-24 22:58] VITALS: BP 162/57
[2021-09-24] MEDS: ATORVASTATIN 20 MG TAB PO SCH (23:27)
[2021-09-25] MEDS: SODIUM CHLORIDE 0.9% 1,000 ML IV SCH ×3 (01:30→18:20)
[2021-09-25 05:00] VITALS: BP 148/48
[2021-09-25 06:25] LABS: Basophils # (auto) 0 10 ^3/uL (0-0.2); Basophils % (auto) 1.2 % (0.0-2.0); Eosinophils # (auto) 0.1 10 ^3/uL (0-0.8); Eosinophils % (auto) 1.9 % (0.0-7.0); Hematocrit 36.7 % (41.0-53.0); Hemoglobin 12.3 g/dL (13.5-17.5); Lymphocytes # (auto) 0.8 10 ^3/uL (0.4-5.4); Mean Corpuscular Hemoglobin 32.6 pg (28.0-32.0); Mean Corpuscular Hgb Conc. 33.6 g/dL (32.0-36.0); Monocytes # (auto) 0.3 10 ^3/uL (0-1.3); Monocytes % (auto) 9.4 % (0.0-12.0); Neutrophils # (auto) 2.3 10 ^3/uL (1.6-8.6); Neutrophils % (auto) 64.5 % (37.0-80.0); Nucleated Red Blood Cells % 0.1 %; Red Blood Cells 3.78 10^6/uL (4.5-5.90); Red Cell Distribution Width 15.7 % (11.8-14.3); White Blood Cell 3.6 10^3/uL (4.4-10.8)
[2021-09-25 06:31] LABS: Calcium 9.4 mg/dL (8.5-10.1); Potassium 4.7 mmol/L (3.5-5.1)
[2021-09-25 06:33] LABS: BUN/Creatinine Ratio 6.5
[2021-09-25] MEDS: InsuLIN REG 1unit/0.01ml Soln (100units/ml) SC SCH ×4 (06:50→18:00)
[2021-09-25] MEDS: ACCU-CHEK COMFORT CURVE STRIP VI SCH ×3 (06:50→18:04)
[2021-09-25 09:00] VITALS: BP 155/61
[2021-09-25] MEDS: SEVELAMER 800 MG TAB PO SCH ×3 (09:16→18:03)
[2021-09-25] MEDS: ASPirin-EC 81 mg tab PO SCH (09:16)
[2021-09-25] MEDS: BENAZEPRIL HCL 10 MG TAB PO SCH (09:17)
[2021-09-25] MEDS: METOPROLOL TARTRATE 25 MG TAB PO SCH ×2 (09:17→22:01)
[2021-09-25] MEDS: HEPARIN SODIUM (PORCINE) 5000 UNITS/ML 1ML VIAL SC SCH (09:25)
[2021-09-25 13:00] VITALS: BP 130/55
[2021-09-25] MEDS: PANTOPRAZOLE 40 MG TAB PO SCH (14:25)
[2021-09-25 17:00] VITALS: BP 182/74
[2021-09-25 17:45] VITALS: BP 145/88
[2021-09-25 22:00] VITALS: BP 163/65
[2021-09-25] MEDS: ATORVASTATIN 20 MG TAB PO SCH (22:01)
[2021-09-26] VITALS (9 sets, daily range): BP systolic 143–192; BP diastolic 55–74
[2021-09-26] MEDS: ACCU-CHEK COMFORT CURVE STRIP VI SCH ×5 (00:49→21:43)
[2021-09-26] MEDS: HEPARIN SODIUM (PORCINE) 5000 UNITS/ML 1ML VIAL SC SCH ×3 (00:54→21:42)
[2021-09-26] MEDS: hydrALAZINE HCL 20 MG/ML VL IV PRN ×3 (01:18→21:44)
[2021-09-26] MEDS: SODIUM CHLORIDE 0.9% 1,000 ML IV SCH ×2 (02:30→10:50)
[2021-09-26] MEDS: InsuLIN REG 1unit/0.01ml Soln (100units/ml) SC SCH ×5 (05:35→21:40)
[2021-09-26 05:52] LABS: Calcium 9.2 mg/dL (8.5-10.1); Potassium 4.7 mmol/L (3.5-5.1)
[2021-09-26 05:56] LABS: Basophils # (auto) 0 10 ^3/uL (0-0.2); Basophils % (auto) 0.7 % (0.0-2.0); Eosinophils # (auto) 0.1 10 ^3/uL (0-0.8); Eosinophils % (auto) 2.3 % (0.0-7.0); Hematocrit 37.4 % (41.0-53.0); Hemoglobin 12.3 g/dL (13.5-17.5); Lymphocytes # (auto) 0.8 10 ^3/uL (0.4-5.4); Lymphocytes % (auto) 19.7 % (10.0-50.0); Mean Corpuscular Volume 97.2 fL (80.0-100.0); Monocytes # (auto) 0.4 10 ^3/uL (0-1.3); Monocytes % (auto) 10.6 % (0.0-12.0); Neutrophils # (auto) 2.7 10 ^3/uL (1.6-8.6); Neutrophils % (auto) 66.7 % (37.0-80.0); Nucleated Red Blood Cells % 0.1 %; Red Blood Cells 3.85 10^6/uL (4.5-5.90); Red Cell Distribution Width 15.6 % (11.8-14.3)
[2021-09-26] MEDS: SEVELAMER 800 MG TAB PO SCH ×3 (08:00→16:49)
[2021-09-26] MEDS: BENAZEPRIL HCL 10 MG TAB PO SCH (09:28)
[2021-09-26] MEDS: ASPirin-EC 81 mg tab PO SCH (09:28)
[2021-09-26] MEDS: PANTOPRAZOLE 40 MG TAB PO SCH (09:28)
[2021-09-26] MEDS: METOPROLOL TARTRATE 25 MG TAB PO SCH ×2 (09:28→21:43)
[2021-09-26] MEDS ORDERED: APIX2.5T PO (12:20)
[2021-09-26] MEDS ORDERED: HEPARIN SODIUM (PORCINE) 5000 UNITS/ML 1ML VIAL ONE (13:07)
[2021-09-26] MEDS ORDERED: ANGIOMAX 250 MG VIAL IV ONE (13:07)
[2021-09-26] MEDS ORDERED: VERAPAMIL 2.5MG/ML INJ 2ML VIAL IV ONE (13:07)
[2021-09-26] MEDS ORDERED: SODIUM CHL 0.9% 0 ML ONE (13:08)
[2021-09-26] MEDS ORDERED: fentaNYL CITRATE 100 MCG/2 ML VL ONE (13:08)
[2021-09-26] MEDS ORDERED: IODIXANOL 320MG/ML 100ML BTL IV ONE ×2 (13:08→13:24)
[2021-09-26] MEDS ORDERED: MIDAZOLAM HCL 2MG/2ML 2ml VIAL (1mg/ml) ONE (13:08)
[2021-09-26] MEDS ORDERED: BUPIVACAINE HCL 50 ML ONE (13:10)
[2021-09-26] MEDS: ATORVASTATIN 20 MG TAB PO SCH (21:42)
== END 2021-09-26 23:05 | disposition home or self-care (01) | DRG 190 ==
LOC: EDBD 13:48 → ER 13:48 → TELE 09-24 00:18 → TELE-WESTW 09-24 22:20
PROVIDERS: ADMIT Hospitalist; ATTEND Hospitalist
PROC: 5A1D70Z Performance of Urinary Filtration, Intermittent, Less than 6 Hours Per Day (ICD-10-PCS; 2021-09-25)
PROC: 4A023N7 Measurement of Cardiac Sampling and Pressure, Left Heart, Percutaneous Approach (ICD-10-PCS; principal; 2021-09-26)
PROC: B2111ZZ Fluoroscopy of Multiple Coronary Arteries using Low Osmolar Contrast (ICD-10-PCS; 2021-09-26)
DX: I21.4 Non-ST elevation (NSTEMI) myocardial infarction (principal); I13.2 Hypertensive heart and chronic kidney disease with heart failure and with stage 5 chronic kidney disease, or end stage renal disease; N18.6 End stage renal disease; E11.22 Type 2 diabetes mellitus with diabetic chronic kidney disease; K74.60 Unspecified cirrhosis of liver; R55 Syncope and collapse; I25.10 Atherosclerotic heart disease of native coronary artery without angina pectoris; E78.5 Hyperlipidemia, unspecified; Z88.8 Allergy status to other drugs, medicaments and biological substances; Z83.3 Family history of diabetes mellitus; Z99.2 Dependence on renal dialysis; I50.22 Chronic systolic (congestive) heart failure
CPT/HCPCS: 36415; 70450; 71045; 74176; 78452; 80048; 80053; 82150; 82962; 83690; 84484; 85025; 85610; 85730; 90935; 93005; 93017; 93306; 93458; 96374; 99152; G0378; J0153; J2250; J3490; Q9967

== ENCOUNTER 2021-12-20 09:24 | Inpatient (IN) | payer MEDICAID ==
[~2021-12-20] VITALS: Ht 167.6 cm; Wt 76.0 kg
[~2021-12-20 09:24] MED LIST changes: +APIX2.5T PO
[2021-12-20] MEDS ORDERED: ONDANSETRON HCL 4 MG/2 ML VIAL IV ONE (10:15)
[2021-12-20] MEDS ORDERED: hydrALAZINE HCL 20 MG/ML VL IV ONE (10:15)
[2021-12-20 10:42] LABS: Basophils # (auto) 0 10 ^3/uL (0-0.2); Basophils % (auto) 0.8 % (0.0-2.0); Eosinophils # (auto) 0.1 10 ^3/uL (0-0.8); Eosinophils % (auto) 1.4 % (0.0-7.0); Hematocrit 33.9 % (41.0-53.0); Lymphocytes # (auto) 0.4 10 ^3/uL (0.4-5.4); Lymphocytes % (auto) 6.9 % (10.0-50.0); Mean Corpuscular Hemoglobin 32.1 pg (28.0-32.0); Mean Corpuscular Hgb Conc. 32.4 g/dL (32.0-36.0); Monocytes # (auto) 0.4 10 ^3/uL (0-1.3); Monocytes % (auto) 7.4 % (0.0-12.0); Neutrophils # (auto) 4.3 10 ^3/uL (1.6-8.6); Neutrophils % (auto) 83.5 % (37.0-80.0); Nucleated Red Blood Cells % 0.1 %; Red Blood Cells 3.43 10^6/uL (4.5-5.90); White Blood Cell 5.2 10^3/uL (4.4-10.8)
[2021-12-20 11:16] LABS: Albumin 3.9 g/dL (3.4-5.0); BUN/Creatinine Ratio 4.2; Calcium 9.4 mg/dL (8.5-10.1); Potassium 3.4 mmol/L (3.5-5.1)
[2021-12-20 11:18] LABS: Bilirubin, Total 1.3 mg/dL (0.2-1.0)
[2021-12-20] MEDS ORDERED: PROCHLORPERAZINE EDISYLATE 5 MG/ML 2ML VIAL IV ONE (12:45)
[2021-12-20] MEDS ORDERED: POTASSIUM CHL 10 Meq TABLET PO ONE (16:30)
[2021-12-20] MEDS ORDERED: ONDANSETRON HCL 4 MG/2 ML VIAL IV PRN (16:30)
[2021-12-20] MEDS ORDERED: NITROGLYCERIN 0.4 MG SL TAB SL PRN (16:30)
[2021-12-20] MEDS ORDERED: MORPHINE SULFATE INJ 2 MG/ml SYRG IV PRN (16:30)
[2021-12-20] MEDS ORDERED: DOCUSATE SOD 100 MG CAP PO PRN (16:30)
[2021-12-20] MEDS ORDERED: ACETAMINOPHEN 650 mg PER 20.3 mL UD PO PRN (16:30)
[2021-12-20] MEDS ORDERED: LOSA-69 PO (17:01)
[2021-12-20] MEDS ORDERED: AMLO-496 PO (17:01)
[2021-12-20] MEDS ORDERED: LACTULOSE 20Gm/30ML SOLN PO ONE (17:15)
[2021-12-20] MEDS ORDERED: DEXTROSE (50%) 50ML SYRG IV PRN (17:15)
[2021-12-20] MEDS: ATORVASTATIN 20 MG TAB PO SCH (18:21)
[2021-12-20] MEDS: SEVELAMER 800 MG TAB PO SCH (18:21)
[2021-12-20] MEDS: hydrALAZINE HCL 20 MG/ML VL IV PRN (20:30)
[2021-12-20] MEDS: APIXABAN 2.5 MG TAB PO SCH (21:54)
[2021-12-20] MEDS: LACTULOSE 20Gm/30ML SOLN PO SCH (21:54)
[2021-12-20] MEDS: InsuLIN REG 1unit/0.01ml Soln (100units/ml) SC SCH (21:55)
[2021-12-20] MEDS: SODIUM CHLOR 0.9% PF (SALINE LOCK) 10ML VIAL/SYR IV SCH (21:56)
[2021-12-20] MEDS: ACCU-CHEK COMFORT CURVE STRIP VI SCH (21:56)
[2021-12-20 23:25] VITALS: BP 132/74
[2021-12-21 05:00] VITALS: BP 150/72
[2021-12-21] MEDS: SODIUM CHLOR 0.9% PF (SALINE LOCK) 10ML VIAL/SYR IV SCH ×3 (06:18→22:00)
[2021-12-21] MEDS: InsuLIN REG 1unit/0.01ml Soln (100units/ml) SC SCH ×4 (06:33→22:00)
[2021-12-21] MEDS: ACCU-CHEK COMFORT CURVE STRIP VI SCH ×4 (06:33→22:00)
[2021-12-21 06:40] LABS: Hematocrit 34.2 % (41.0-53.0); Hemoglobin 11.3 g/dL (13.5-17.5); Mean Corpuscular Hemoglobin 32.2 pg (28.0-32.0); Mean Corpuscular Hgb Conc. 32.9 g/dL (32.0-36.0); Mean Corpuscular Volume 97.8 fL (80.0-100.0); White Blood Cell 4.3 10^3/uL (4.4-10.8)
[2021-12-21 06:58] LABS: Albumin 3.6 g/dL (3.4-5.0); BUN/Creatinine Ratio 4.1; Calcium 9.5 mg/dL (8.5-10.1); Potassium 4.5 mmol/L (3.5-5.1)
[2021-12-21 07:01] LABS: Bilirubin, Total 1.1 mg/dL (0.2-1.0); Total Protein 6.9 g/dL (6.4-8.2)
[2021-12-21 07:57] LABS: Band Neutrophils % (manual) 0; Basophils % (manual) 0 (0.0-2.0); Blast Cells 0; Metamyelocytes % 0; Myelocytes % 0; Promyelocytes % 0; Reactive Lymphocytes 0
[2021-12-21 08:00] VITALS: BP 168/74
[2021-12-21 08:14] LABS: Lymphocytes % (manual) 15 (10.0-50.0)
[2021-12-21 08:15] LABS: Eosinophils % (manual) 1 (0-7); Monocytes % (manual) 13 (0-12)
[2021-12-21] MEDS: LOSARTAN POTASSIUM 50 MG TAB PO SCH (10:24)
[2021-12-21] MEDS: LACTULOSE 20Gm/30ML SOLN PO SCH ×2 (10:24→23:01)
[2021-12-21] MEDS: SEVELAMER 800 MG TAB PO SCH ×3 (10:24→18:33)
[2021-12-21] MEDS: amLODIPine BESYLATE 5 MG TAB PO SCH (10:25)
[2021-12-21] MEDS: APIXABAN 2.5 MG TAB PO SCH ×2 (10:25→23:01)
[2021-12-21 13:00] VITALS: BP 156/61
[2021-12-21 16:49] VITALS: BP 151/67
[2021-12-21] MEDS: ATORVASTATIN 20 MG TAB PO SCH (18:33)
[2021-12-21 20:00] VITALS: BP 167/71
[2021-12-21 22:00] VITALS: BP 167/61
[2021-12-21] MEDS: hydrALAZINE HCL 20 MG/ML VL IV PRN (23:32)
[2021-12-22] VITALS (7 sets, daily range): BP systolic 146–180; BP diastolic 58–69
[2021-12-22] MEDS: hydrALAZINE HCL 20 MG/ML VL IV PRN ×3 (05:44→18:52)
[2021-12-22] MEDS: SODIUM CHLOR 0.9% PF (SALINE LOCK) 10ML VIAL/SYR IV SCH ×3 (06:10→22:22)
[2021-12-22] MEDS: ACCU-CHEK COMFORT CURVE STRIP VI SCH ×4 (06:17→22:24)
[2021-12-22] MEDS: InsuLIN REG 1unit/0.01ml Soln (100units/ml) SC SCH ×4 (06:17→22:00)
[2021-12-22] MEDS: LACTULOSE 20Gm/30ML SOLN PO SCH ×2 (09:38→22:22)
[2021-12-22] MEDS: SEVELAMER 800 MG TAB PO SCH ×3 (09:38→18:49)
[2021-12-22] MEDS: APIXABAN 2.5 MG TAB PO SCH ×2 (09:39→22:23)
[2021-12-22] MEDS: LOSARTAN POTASSIUM 50 MG TAB PO SCH ×2 (09:39→22:23)
[2021-12-22] MEDS: amLODIPine BESYLATE 5 MG TAB PO SCH (09:40)
[2021-12-22] MEDS: MECLIZINE HCL 25 MG TAB PO PRN ×2 (12:58→23:45)
[2021-12-22] MEDS: METOPROLOL TARTRATE 25 MG TAB PO SCH ×2 (16:25→22:24)
[2021-12-22] MEDS: ATORVASTATIN 20 MG TAB PO SCH (18:49)
[2021-12-23] VITALS (7 sets, daily range): BP systolic 142–160; BP diastolic 55–100
[2021-12-23] MEDS: SODIUM CHLOR 0.9% PF (SALINE LOCK) 10ML VIAL/SYR IV SCH ×3 (06:15→23:58)
[2021-12-23] MEDS: ACCU-CHEK COMFORT CURVE STRIP VI SCH ×4 (06:31→22:50)
[2021-12-23] MEDS: InsuLIN REG 1unit/0.01ml Soln (100units/ml) SC SCH ×4 (06:31→22:00)
[2021-12-23] MEDS ORDERED: SODIUM CHL 0.9% 1000 ML BAG XX ONE (07:00)
[2021-12-23] MEDS: SEVELAMER 800 MG TAB PO SCH ×3 (08:15→18:31)
[2021-12-23] MEDS: LACTULOSE 20Gm/30ML SOLN PO SCH ×2 (09:03→22:41)
[2021-12-23] MEDS: APIXABAN 2.5 MG TAB PO SCH ×2 (09:04→22:47)
[2021-12-23] MEDS: amLODIPine BESYLATE 5 MG TAB PO SCH (09:04)
[2021-12-23] MEDS: METOPROLOL TARTRATE 25 MG TAB PO SCH ×2 (09:04→22:47)
[2021-12-23] MEDS: LOSARTAN POTASSIUM 50 MG TAB PO SCH ×2 (09:05→22:45)
[2021-12-23] MEDS: ATORVASTATIN 20 MG TAB PO SCH (18:31)
[2021-12-24 05:00] VITALS: BP 186/68
[2021-12-24] MEDS: InsuLIN REG 1unit/0.01ml Soln (100units/ml) SC SCH (07:00)
[2021-12-24] MEDS: SODIUM CHLOR 0.9% PF (SALINE LOCK) 10ML VIAL/SYR IV SCH (07:22)
[2021-12-24] MEDS: ACCU-CHEK COMFORT CURVE STRIP VI SCH (07:23)
[2021-12-24] MEDS: SEVELAMER 800 MG TAB PO SCH (08:26)
[2021-12-24] MEDS: hydrALAZINE HCL 20 MG/ML VL IV PRN (08:26)
[2021-12-24 08:30] VITALS: BP 176/68
[2021-12-24 09:00] VITALS: BP 176/68
[2021-12-24] MEDS: LACTULOSE 20Gm/30ML SOLN PO SCH (09:34)
[2021-12-24] MEDS: amLODIPine BESYLATE 5 MG TAB PO SCH (09:35)
[2021-12-24] MEDS: LOSARTAN POTASSIUM 50 MG TAB PO SCH (09:35)
[2021-12-24] MEDS: APIXABAN 2.5 MG TAB PO SCH (09:35)
[2021-12-24] MEDS: METOPROLOL TARTRATE 25 MG TAB PO SCH (09:35)
== END 2021-12-24 11:43 | disposition home or self-care (01) | DRG 111 ==
LOC: EDBD 09:24 → ER 09:24 → TELE 16:32 → TELE-WESTW 23:24
PROVIDERS: ADMIT Nurse Practitioner Family; ATTEND Internal Medicine
PROC: 5A1D70Z Performance of Urinary Filtration, Intermittent, Less than 6 Hours Per Day (ICD-10-PCS; principal; 2021-12-23)
DX: R42 Dizziness and giddiness (principal); I12.0 Hypertensive chronic kidney disease with stage 5 chronic kidney disease or end stage renal disease; E11.22 Type 2 diabetes mellitus with diabetic chronic kidney disease; D64.9 Anemia, unspecified; E78.5 Hyperlipidemia, unspecified; F32.A Depression, unspecified; N18.6 End stage renal disease; F41.9 Anxiety disorder, unspecified; Z20.822 Contact with and (suspected) exposure to COVID-19; K74.60 Unspecified cirrhosis of liver; Z88.8 Allergy status to other drugs, medicaments and biological substances; Z83.3 Family history of diabetes mellitus; Z99.2 Dependence on renal dialysis; Z79.899 Other long term (current) drug therapy
CPT/HCPCS: 36415; 70450; 70551; 71045; 80053; 82140; 82962; 84484; 85007; 85025; 85027; 90935; 93005; 96372; 96374; 96375; 99291; G0378; J1815; J2405

== ENCOUNTER 2022-02-17 08:06 | Inpatient (IN) | payer MEDICAID ==
[~2022-02-17] VITALS: Ht 165.1 cm; Wt 70.7 kg
[~2022-02-17 08:06] MED LIST changes: +AMLO-496 PO; -B-CO-5 PO; -BENA5TAB9 PO; +LOSA-69 PO
[2022-02-17 08:55] LABS: Basophils # (auto) 0 10 ^3/uL (0-0.2); Basophils % (auto) 0.7 % (0.0-2.0); Eosinophils # (auto) 0.1 10 ^3/uL (0-0.8); Eosinophils % (auto) 2.5 % (0.0-7.0); Hematocrit 38.1 % (41.0-53.0); Hemoglobin 12.9 g/dL (13.5-17.5); Lymphocytes # (auto) 0.5 10 ^3/uL (0.4-5.4); Lymphocytes % (auto) 9.7 % (10.0-50.0); Mean Corpuscular Hgb Conc. 33.9 g/dL (32.0-36.0); Mean Corpuscular Volume 97.4 fL (80.0-100.0); Monocytes # (auto) 0.4 10 ^3/uL (0-1.3); Monocytes % (auto) 8.7 % (0.0-12.0); Neutrophils # (auto) 4.1 10 ^3/uL (1.6-8.6); Neutrophils % (auto) 78.4 % (37.0-80.0); Red Blood Cells 3.92 10^6/uL (4.5-5.90); Red Cell Distribution Width 13.9 % (11.8-14.3); White Blood Cell 5.2 10^3/uL (4.4-10.8)
[2022-02-17 09:04] LABS: Albumin 3.8 g/dL (3.4-5.0); Calcium 9.1 mg/dL (8.5-10.1); Potassium 3.4 mmol/L (3.5-5.1)
[2022-02-17 09:07] LABS: BUN/Creatinine Ratio 4.9; Bilirubin, Total 1.3 mg/dL (0.2-1.0); Total Protein 7.2 g/dL (6.4-8.2)
[2022-02-17] MEDS ORDERED: MORPHINE SULFATE INJ 2 MG/ml SYRG IV ONE (12:00)
[2022-02-17] MEDS ORDERED: MORPHINE SULFATE INJ 2 MG/ml SYRG IV PRN ×2 (14:00)
[2022-02-17] MEDS ORDERED: ACETAMINOPHEN 325 MG TAB PO PRN (14:00)
[2022-02-17] MEDS ORDERED: NITROGLYCERIN 0.4 MG SL TAB SL PRN (14:00)
[2022-02-17] MEDS ORDERED: DEXTROSE (50%) 50ML SYRG IV PRN ×2 (15:00→15:15)
[2022-02-17] MEDS: PIPERACILLIN-TAZOB 2.25GM 50 ML IV SCH (15:35)
[2022-02-17] MEDS ORDERED: ACCU-CHEK COMFORT CURVE STRIP VI SCH (17:00)
[2022-02-17] MEDS ORDERED: InsuLIN REG 1unit/0.01ml Soln (100units/ml) SC SCH (17:00)
[2022-02-17] MEDS: InsuLIN REG 1unit/0.01ml Soln (100units/ml) SC SCH ×2 (17:00→21:56)
[2022-02-17] MEDS: ACCU-CHEK COMFORT CURVE STRIP VI SCH ×2 (17:11→21:55)
[2022-02-17] MEDS: HYDROcodone-ACET 5/325MG TAB PO PRN (17:45)
[2022-02-17] MEDS: SEVELAMER 800 MG TAB PO SCH (18:05)
[2022-02-17] MEDS: ATORVASTATIN 20 MG TAB PO SCH (18:05)
[2022-02-17] MEDS: hydrALAZINE HCL 20 MG/ML VL IV PRN (20:16)
[2022-02-17] MEDS: APIXABAN 2.5 MG TAB PO SCH (22:00)
[2022-02-17] MEDS: CARVEDILOL 12.5 MG TAB PO SCH (22:01)
[2022-02-17 22:39] VITALS: BP 175/62
[2022-02-17] MEDS ORDERED: DOCU100C10 PO (23:01)
[2022-02-17] MEDS ORDERED: SODI10PA PO (23:01)
[2022-02-17] MEDS ORDERED: ASPI-325 PO (23:01)
[2022-02-17] MEDS ORDERED: PANT40T PO (23:01)
[2022-02-17] MEDS ORDERED: FUR20T PO (23:01)
[2022-02-17] MEDS ORDERED: SEVE800T20 PO (23:01)
[2022-02-17] MEDS ORDERED: DIPH25TA31 PO (23:01)
[2022-02-17] MEDS ORDERED: CLON0.1D7 TOP (23:01)
[2022-02-17] MEDS ORDERED: CARV12.544 PO (23:01)
[2022-02-17] MEDS ORDERED: AMIO200T4 PO (23:01)
[2022-02-17] MEDS ORDERED: ALLO100T PO (23:01)
[2022-02-17] MEDS ORDERED: HYDR50TA15 PO (23:01)
[2022-02-18] MEDS: HYDROcodone-ACET 5/325MG TAB PO PRN (00:42)
[2022-02-18] MEDS: PIPERACILLIN-TAZOB 2.25GM 50 ML IV SCH (04:10)
[2022-02-18 05:40] LABS: Basophils # (auto) 0 10 ^3/uL (0-0.2); Eosinophils # (auto) 0.1 10 ^3/uL (0-0.8); Eosinophils % (auto) 1.4 % (0.0-7.0); Hematocrit 37.2 % (41.0-53.0); Hemoglobin 12.6 g/dL (13.5-17.5); Lymphocytes % (auto) 19.2 % (10.0-50.0); Mean Corpuscular Hemoglobin 33.1 pg (28.0-32.0); Mean Corpuscular Hgb Conc. 33.9 g/dL (32.0-36.0); Mean Corpuscular Volume 97.5 fL (80.0-100.0); Monocytes # (auto) 0.6 10 ^3/uL (0-1.3); Monocytes % (auto) 12.3 % (0.0-12.0); Neutrophils # (auto) 3.3 10 ^3/uL (1.6-8.6); Neutrophils % (auto) 66.1 % (37.0-80.0); Red Blood Cells 3.82 10^6/uL (4.5-5.90)
[2022-02-18 05:56] LABS: Potassium 4.4 mmol/L (3.5-5.1)
[2022-02-18 06:08] LABS: Albumin 3.3 g/dL (3.4-5.0); BUN/Creatinine Ratio 4.6; Bilirubin, Total 1.3 mg/dL (0.2-1.0); Calcium 9.1 mg/dL (8.5-10.1); Total Protein 6.5 g/dL (6.4-8.2)
[2022-02-18] MEDS: InsuLIN REG 1unit/0.01ml Soln (100units/ml) SC SCH ×4 (06:20→22:00)
[2022-02-18] MEDS: ACCU-CHEK COMFORT CURVE STRIP VI SCH ×3 (06:21→17:29)
[2022-02-18] MEDS: CARVEDILOL 12.5 MG TAB PO SCH (09:12)
[2022-02-18] MEDS: LOSARTAN POTASSIUM 50 MG TAB PO SCH (09:13)
[2022-02-18] MEDS: APIXABAN 2.5 MG TAB PO SCH ×2 (09:13→22:00)
[2022-02-18] MEDS: amLODIPine BESYLATE 5 MG TAB PO SCH (09:14)
[2022-02-18 09:15] VITALS: BP_SYST 122; BP_SYST 171; BP_DIAS 51; BP_DIAS 70
[2022-02-18] MEDS: SEVELAMER 800 MG TAB PO SCH ×3 (09:16→18:03)
[2022-02-18] MEDS: ALOGLIPTIN 6.25 MG PO SCH (09:17)
[2022-02-18 13:00] VITALS: BP 184/80
[2022-02-18] MEDS ORDERED: cloNIDine HCL 0.1 MG TAB PO ONE ×3 (14:15→16:30)
[2022-02-18] MEDS ORDERED: VANCOMYCIN PER PHARMACY 0 MG IV SCH (14:15)
[2022-02-18] MEDS: cefTRIAXone 1GM/50ML D5W 50 ML IV SCH (14:48)
[2022-02-18] MEDS ORDERED: VANCOMYCIN 1GM/250ML 250 ML IV ONE (15:00)
[2022-02-18 17:17] VITALS: BP 167/71
[2022-02-18] MEDS: ATORVASTATIN 20 MG TAB PO SCH (18:03)
[2022-02-18 22:00] VITALS: BP 161/60
[2022-02-19] MEDS: cloNIDine HCL 0.1 MG TAB PO SCH ×2 (00:41→10:27)
[2022-02-19] MEDS: CARVEDILOL 12.5 MG TAB PO SCH ×2 (00:42→10:25)
[2022-02-19] MEDS: ACCU-CHEK COMFORT CURVE STRIP VI SCH ×5 (00:43→22:38)
[2022-02-19] MEDS: hydrALAZINE HCL 20 MG/ML VL IV PRN ×2 (04:47→10:18)
[2022-02-19 05:00] VITALS: BP 170/67
[2022-02-19] MEDS: HYDROcodone-ACET 5/325MG TAB PO PRN (06:05)
[2022-02-19] MEDS: InsuLIN REG 1unit/0.01ml Soln (100units/ml) SC SCH ×4 (06:20→22:44)
[2022-02-19] MEDS ORDERED: SODIUM CHL 0.9% 1000 ML BAG XX ONE (07:00)
[2022-02-19 07:28] LABS: Potassium 4.4 mmol/L (3.5-5.1)
[2022-02-19 07:33] LABS: BUN/Creatinine Ratio 5.4; Calcium 9.1 mg/dL (8.5-10.1); Total Protein 6.5 g/dL (6.4-8.2)
[2022-02-19] MEDS: SEVELAMER 800 MG TAB PO SCH ×3 (08:00→17:28)
[2022-02-19 09:00] VITALS: BP 184/64
[2022-02-19] MEDS: ALOGLIPTIN 6.25 MG PO SCH (10:00)
[2022-02-19] MEDS: cefTRIAXone 1GM/50ML D5W 50 ML IV SCH (10:20)
[2022-02-19] MEDS: LOSARTAN POTASSIUM 50 MG TAB PO SCH (10:26)
[2022-02-19] MEDS: amLODIPine BESYLATE 5 MG TAB PO SCH (10:26)
[2022-02-19] MEDS: APIXABAN 2.5 MG TAB PO SCH ×2 (10:26→22:47)
[2022-02-19 12:53] VITALS: BP 166/53
[2022-02-19] MEDS ORDERED: NIFEdipine ER 30 MG TAB PO ONE (13:45)
[2022-02-19] MEDS ORDERED: VANCOMYCIN 1GM/250ML 250 ML IV ONE (16:00)
[2022-02-19 16:58] VITALS: BP 146/60
[2022-02-19] MEDS: ATORVASTATIN 20 MG TAB PO SCH (17:28)
[2022-02-19 22:00] VITALS: BP 136/53
[2022-02-20] MEDS: cloNIDine HCL 0.1 MG TAB PO SCH ×2 (00:37→09:50)
[2022-02-20] MEDS: CARVEDILOL 12.5 MG TAB PO SCH ×2 (00:38→09:50)
[2022-02-20] MEDS: hydrALAZINE HCL 20 MG/ML VL IV PRN (04:46)
[2022-02-20 05:00] VITALS: BP 158/58
[2022-02-20] MEDS: ACCU-CHEK COMFORT CURVE STRIP VI SCH ×3 (05:58→17:00)
[2022-02-20] MEDS: InsuLIN REG 1unit/0.01ml Soln (100units/ml) SC SCH ×3 (06:02→17:00)
[2022-02-20] MEDS: cefTRIAXone 1GM/50ML D5W 50 ML IV SCH (08:28)
[2022-02-20] MEDS: SEVELAMER 800 MG TAB PO SCH ×2 (08:33→12:17)
[2022-02-20] MEDS ORDERED: ONDANSETRON HCL 4 MG/2 ML VIAL IV PRN (08:45)
[2022-02-20 09:00] VITALS: BP 136/54
[2022-02-20] MEDS: APIXABAN 2.5 MG TAB PO SCH (09:48)
[2022-02-20] MEDS: LOSARTAN POTASSIUM 50 MG TAB PO SCH (09:49)
[2022-02-20] MEDS: ALOGLIPTIN 6.25 MG PO SCH (09:55)
[2022-02-20] MEDS ORDERED: NIFEdipine ER 30 MG TAB PO SCH (10:00)
[2022-02-20] MEDS ORDERED: AMOX500T86 PO (11:09)
[2022-02-20] MEDS ORDERED: NIFE1TAB31 PO (11:09)
[2022-02-20 13:00] VITALS: BP 130/51
[2022-02-20 16:16] VITALS: BP 148/64
[2022-02-20 16:26] VITALS: BP 139/54
== END 2022-02-20 17:30 | disposition home or self-care (01) | DRG 113 ==
LOC: EDBD 08:06 → ER 08:06 → TELE 14:04 → TELE-WESTW 21:05
PROVIDERS: ADMIT Registered Nurse; ATTEND Internal Medicine
PROC: 5A1D70Z Performance of Urinary Filtration, Intermittent, Less than 6 Hours Per Day (ICD-10-PCS; principal; 2022-02-19)
DX: H70.92 Unspecified mastoiditis, left ear (principal); I50.43 Acute on chronic combined systolic (congestive) and diastolic (congestive) heart failure; D69.6 Thrombocytopenia, unspecified; N18.6 End stage renal disease; D63.1 Anemia in chronic kidney disease; E11.22 Type 2 diabetes mellitus with diabetic chronic kidney disease; E83.39 Other disorders of phosphorus metabolism; K74.60 Unspecified cirrhosis of liver; Z20.822 Contact with and (suspected) exposure to COVID-19; I65.21 Occlusion and stenosis of right carotid artery; I13.2 Hypertensive heart and chronic kidney disease with heart failure and with stage 5 chronic kidney disease, or end stage renal disease; E78.5 Hyperlipidemia, unspecified; E87.6 Hypokalemia; H66.92 Otitis media, unspecified, left ear; H91.91 Unspecified hearing loss, right ear; I16.0 Hypertensive urgency; Z99.2 Dependence on renal dialysis; Z83.3 Family history of diabetes mellitus
CPT/HCPCS: 36415; 70450; 70490; 71045; 80053; 80202; 82962; 83880; 84484; 85025; 85379; 87426; 90935; 93005; 93886; 96365; 96366; 96375; G0378; J0696; J1815; J2405; J2543

== ENCOUNTER 2022-04-03 23:28 | Inpatient (IN) | payer MEDICAID ==
[~2022-04-03] VITALS: Ht 162.6 cm; Wt 67.6 kg
[~2022-04-03 23:28] MED LIST changes: +ALLO100T PO; +AMIO200T4 PO; -AMLO-496 PO; +AMOX500T86 PO; +ASPI-325 PO; +CARV12.544 PO; +CLON0.1D7 TOP; +DIPH25TA31 PO; +DOCU100C10 PO; +FUR20T PO; +HYDR50TA15 PO; +NIFE1TAB31 PO; +PANT40T PO; +SEVE800T20 PO; +SODI10PA PO
[2022-04-04 01:14] LABS: Basophils # (auto) 0 10 ^3/uL (0-0.2); Basophils % (auto) 0.8 % (0.0-2.0); Eosinophils # (auto) 0.2 10 ^3/uL (0-0.8); Eosinophils % (auto) 3.1 % (0.0-7.0); Hematocrit 35.8 % (41.0-53.0); Hemoglobin 12.1 g/dL (13.5-17.5); Lymphocytes # (auto) 0.8 10 ^3/uL (0.4-5.4); Lymphocytes % (auto) 14.8 % (10.0-50.0); Mean Corpuscular Hemoglobin 32.5 pg (28.0-32.0); Mean Corpuscular Hgb Conc. 33.7 g/dL (32.0-36.0); Mean Corpuscular Volume 96.4 fL (80.0-100.0); Monocytes # (auto) 0.3 10 ^3/uL (0-1.3); Neutrophils % (auto) 75.3 % (37.0-80.0); Nucleated Red Blood Cells % 0.1 %; Red Blood Cells 3.71 10^6/uL (4.5-5.90); Red Cell Distribution Width 14.8 % (11.8-14.3); White Blood Cell 5.3 10^3/uL (4.4-10.8)
[2022-04-04 01:33] LABS: Albumin 3.8 g/dL (3.4-5.0); BUN/Creatinine Ratio 6.3; Calcium 9.7 mg/dL (8.5-10.1)
[2022-04-04 01:43] LABS: Potassium 6.8 mmol/L (3.5-5.1)
[2022-04-04 01:45] LABS: Total Protein 7.3 g/dL (6.4-8.2)
[2022-04-04] MEDS ORDERED: cloNIDine HCL 0.1 MG TAB PO ONE (01:45)
[2022-04-04] MEDS ORDERED: InsuLIN REG 1unit/0.01ml Soln (100units/ml) IV ONE (03:45)
[2022-04-04] MEDS ORDERED: SODIUM ZIRCONIUM CYCL 10 GM PAK PO ONE (03:45)
[2022-04-04] MEDS ORDERED: CALCIUM GLUC 1,000mg/50ml-NS 50 ML IV ONE (03:45)
[2022-04-04] MEDS ORDERED: SODIUM BICARBONATE 8.4% INJ 50ML SYRINGE IV ONE (03:45)
[2022-04-04] MEDS ORDERED: DEXTROSE (50%) 50ML SYRG IV ONE (03:45)
[2022-04-04] MEDS ORDERED: MORPHINE SULFATE INJ 2 MG/ml SYRG IV PRN (05:45)
[2022-04-04] MEDS ORDERED: TEMAZEPAM 15 MG CAP PO PRN (05:45)
[2022-04-04] MEDS ORDERED: NITROGLYCERIN 0.4 MG SL TAB SL PRN (05:45)
[2022-04-04] MEDS ORDERED: cloNIDine HCL 0.1 MG TAB PO PRN (05:45)
[2022-04-04] MEDS ORDERED: ACETAMINOPHEN 325 MG TAB PO PRN (05:45)
[2022-04-04] MEDS ORDERED: DEXTROSE (50%) 50ML SYRG IV PRN (05:45)
[2022-04-04] MEDS ORDERED: ONDANSETRON HCL 4 MG/2 ML VIAL IV PRN (05:45)
[2022-04-04] MEDS: InsuLIN REG 1unit/0.01ml Soln (100units/ml) SC SCH ×4 (07:00→22:00)
[2022-04-04] MEDS: ACCU-CHEK COMFORT CURVE STRIP VI SCH ×4 (07:23→22:00)
[2022-04-04] MEDS ORDERED: SODIUM CHL 0.9% 1000 ML BAG XX ONE (09:45)
[2022-04-04] MEDS ORDERED: PANTOPRAZOLE 40 MG TAB PO SCH (10:00)
[2022-04-04] MEDS ORDERED: NIFEdipine ER 30 MG TAB PO SCH (10:00)
[2022-04-04] MEDS ORDERED: LOSARTAN POTASSIUM 50 MG TAB PO SCH (10:00)
[2022-04-04] MEDS: SEVELAMER 800 MG TAB PO SCH ×3 (10:48→18:15)
[2022-04-04] MEDS: APIXABAN 2.5 MG TAB PO SCH (10:51)
[2022-04-04] MEDS: AMIODARONE HCL 200 MG TAB PO SCH (10:51)
[2022-04-04] MEDS ORDERED: MIN25T PO (13:05)
[2022-04-04] MEDS ORDERED: CARV12.544 PO (13:05)
[2022-04-04] MEDS ORDERED: CLON0.1D7 TOP (13:05)
[2022-04-04] MEDS ORDERED: NIFE1TAB31 PO (13:05)
[2022-04-04] MEDS: hydrALAZINE HCL 25 MG TAB PO SCH (15:37)
[2022-04-04] MEDS: METOPROLOL TARTRATE 25 MG TAB PO SCH (20:13)
[2022-04-04] MEDS ORDERED: ATORVASTATIN 20 MG TAB PO SCH (22:00)
[2022-04-04] MEDS ORDERED: MINOXIDIL 2.5 MG TAB PO SCH (22:00)
[2022-04-05] MEDS: APIXABAN 2.5 MG TAB PO SCH (00:17)
[2022-04-05] MEDS: hydrALAZINE HCL 25 MG TAB PO SCH (00:18)
[2022-04-05] MEDS: METOPROLOL TARTRATE 25 MG TAB PO SCH (00:20)
[2022-04-05] MEDS: AMIODARONE HCL 200 MG TAB PO SCH (00:20)
[2022-04-05 04:00] VITALS: BP 136/34
== END 2022-04-05 04:05 | disposition home or self-care (01) | DRG 199 ==
LOC: ER 23:28 → OVERFLOW 04-04 05:32
PROVIDERS: ADMIT Nurse Practitioner; ATTEND Hospitalist
PROC: 5A1D70Z Performance of Urinary Filtration, Intermittent, Less than 6 Hours Per Day (ICD-10-PCS; principal; 2022-04-04)
DX: I16.0 Hypertensive urgency (principal); N18.6 End stage renal disease; E11.649 Type 2 diabetes mellitus with hypoglycemia without coma; D63.8 Anemia in other chronic diseases classified elsewhere; N25.81 Secondary hyperparathyroidism of renal origin; I50.9 Heart failure, unspecified; I13.2 Hypertensive heart and chronic kidney disease with heart failure and with stage 5 chronic kidney disease, or end stage renal disease; E87.5 Hyperkalemia; J40 Bronchitis, not specified as acute or chronic; Z20.822 Contact with and (suspected) exposure to COVID-19; F32.A Depression, unspecified; F41.9 Anxiety disorder, unspecified; R79.89 Other specified abnormal findings of blood chemistry; K42.9 Umbilical hernia without obstruction or gangrene; E78.5 Hyperlipidemia, unspecified; E11.22 Type 2 diabetes mellitus with diabetic chronic kidney disease; E11.65 Type 2 diabetes mellitus with hyperglycemia; I48.91 Unspecified atrial fibrillation; Z91.199 Patient's noncompliance with other medical treatment and regimen due to unspecified reason; Z88.8 Allergy status to other drugs, medicaments and biological substances; Z91.14 Patient's other noncompliance with medication regimen; Z99.2 Dependence on renal dialysis; Z83.3 Family history of diabetes mellitus
CPT/HCPCS: 36415; 71046; 80053; 82962; 84132; 84484; 85025; 87426; 90935; 93005; 96365; 96375; 96376; 99291; G0378; J1815

== ENCOUNTER 2025-03-02 17:50 | Emergency (ER) | payer MEDICAID ==
[~2025-03-02] VITALS: Ht 162.6 cm; Wt 65.9 kg
[~2025-03-02 17:50] MED LIST changes: -ACET-1156 PO; +ACET-1881 PO; +AMIO200T13 PO; -AMIO200T4 PO; +DOCU-265 PO; -DOCU100C10 PO; -FUR20T PO; +FURO20TA4 PO; -HYDR50TA15 PO; +HYDR50TA47 PO; +LOSA-534 PO; -LOSA-69 PO; +MECL-90 PO; -MECL25TA18 PO; +MIN25T PO
--- NOTE | 2025-03-02 18:03 | ECG ---
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
--- NOTE | 2025-03-02 18:46 | ED.PDOC ---
History of Present Illness HPI Comments 59 year old male came to ER due to abdominal pain. Patient has history of liver cirrhosis and ESRD, on dialysis every es, Th, Sat. States for the past 20 days, he has been having episodes of diarrhea after each meal intake. Earlier today, he started having epigastric abdominal pain radiating downwards, as sociated with over 20 episodes of watery diarrhea and 2 episodes of vomiting. Complaining also of lower extremity weakness. Patient unable to get his dialysis session earlier because he felt so weak, Intake of loperamide offered slight relief REVIEW OF SYSTEMS: General: (+) weakness. HEENT: No ear pain, no throat pain Cardiac: No chest pain. No palpitations. Lungs: No shortness of breath, no cough. GI: (+) Epigastric pain. (+) vomiting (+) diarrhea : No dysuria, frequency, or urgency. No hematuria. Musculoskeletal: LT elbow pain, LT elbow pain Skin: No rash, no itching. Neuro: No Headache, (+) weakness PHYSICAL EXAM: General: Awake, alert and oriented. Skin: Skin in warm, dry and intact. Appropriate color for ethnicity. HEENT: The head is normocephalic and atraumatic. Conjunctivae are clear without exudates or hemorrhage. Sclera is non-icteric. Eyelids are normal in appearance without swelling or lesions. Oral mucosa is pink and moist Neck: Bilateral neck tenderness. Cardiac: Heart rate and rhythm are normal. No murmurs, gallops, or rubs are auscultated. Respiratory: No signs of respiratory distress. Lung sounds are clear in all lobes bilaterally without rales, rhonchi, or wheezes. Abdominal: Abdomen is soft, non-tender without distention, guarding or rigidity. Bowel sounds are present and normoactive in all four quadrants. Extremities: Upper and lower extremities are atraumatic in appearance without deformity or edema. Neurological: The patient is awake, alert and oriented to person, place, and time with normal speech. Speech is clear. There is no facial asymmetry. Psychiatric: Appropriate mood and affect. Good judgement and insight. Chief Complaint: Abdominal Pain Time Seen by MD: 18:40 Primary Care Provider: YEIMY Mario Notes: Nurses Notes Allergies: Coded Allergies: Lidocaine (Verified Allergy, Severe, 09/23/21) Home Meds Active Scripts Minoxidil (Loniten) 2.5 Mg Tb, 1 TAB PO BID, #60 TAB 1 Refill Prov:IRMA EUCEDA MD 04/04/22 Nifedipine (Nifedipine Er) 30 Mg Tab, 60 MG PO DAILY for 30 Days, #60 TAB 2 Refills Prov:IRMA EUCEDA MD 04/04/22 Carvedilol (Carvedilol) 12.5 Mg Tab, 1 TAB PO BID, #90 TAB Prov:IRMA EUCEDA MD 04/04/22 Clonidine Hydrochloride (Clonidine Hcl) 0.1 Mg/24 Hr Dis, 1 PATCH TOP QWEEKLY, #10 DIS Prov:IRMA EUCEDA MD 04/04/22 Amoxicillin & Pot Clavulanate (Augmentin) 500 Mg Tab, 500 MG PO BID for 7 Days, #14 TAB Prov:ROBIN DICKERSON MD 02/20/22 Metoprolol Tartrate (Metoprolol Tartrate) 25 Mg Tab, 0.5 TAB PO BID, #60 TAB 1 R efill Prov:CONRAD CADENA MD 03/12/21 Reported Medications Sevelamer Hydrochloride (Sevelamer Hydrochloride) 800 Mg Tab, 2 TAB PO TID 02/17/22 Furosemide (Furosemide) 20 Mg Tab, 1 TAB PO DAILYPRN 02/17/22 Amiodarone HCl (Amiodarone HCl) 200 Mg Tab, 1 TAB PO BID 02/17/22 Hydralazine Hcl (Hydralazine Hcl) 50 Mg Tab, 1 TAB PO BID 02/17/22 Allopurinol (Allopurinol) 100 Mg Tab, 1 TAB PO DAILYPRN 02/17/22 Docusate Sodium (Docusate Sodium) 100 Mg Cap, 1 CAP PO BID 02/17/22 Sodium Zirconium Cyclosilicate (Lokelma) 10 Gm Alejandro, 1 PKT PO DAILYPRN 02/17/22 Aspirin (Aspirin Low Dose) 81 Mg Tab, 1 TAB PO DAILYPRN 02/17/22 Pantoprazole Sodium Sesquihydr (Pantoprazole Sodium) 40 Mg Tab, 1 TAB PO DA ILYPRN 02/17/22 Diphenhydramine Hcl (Banophen) 25 Mg Tab, PO 02/17/22 Losartan Potassium (Losartan Potassium) 50 Mg Tab, 1 TAB PO DAILY 12/20/21 Apixaban Base (ELIQUIS) 2.5 Mg Tab, 1 TAB PO BID 09/26/21 Atorvastatin Calcium (ATORVASTATIN CALCIUM) 40 Mg Tab, 1 TAB PO QPM, #90 TAB 3 Refills 03/11/21 Alogliptin Benzoate (Alogliptin) 6.25 Mg Tab, 6.25 MG PO DAILY, TAB 03/11/21 Diphenhydramine Hcl (Benadryl Allergy) 25 Mg Cap, 25 MG PO [id number], CAP 03/11/21 Acetaminophen (Acetaminophen) 325 Mg Tab, 325 MG PO Q6HPRN PRN for MILD PAIN for 30 Days, MG 0 Refills 05/09/19 Meclizine Hcl (Meclizine Hcl) 25 Mg Tab, 25 MG PO TID PRN for DIZZINESS for 30 Days, MG 05/09/19 Sevelamer Carbonate (Renvela) 800 Mg Tab, 2 TAB PO TIDWM, #540 TAB 3 Refills 01/21/19 Ferric Citrate (Auryxia) 210 Mg Tab, 210 MG PO TIDWM, TAB 01/21/19 Information Source: Patient Mode of Arrival: Ambulatory Severity: Moderate Timing: Days Duration: Intermittent Past Medical History PAST MEDICAL HISTORY: Anemia, Anxiety, Depression, DM, ESRD, High Lipids, HTN, Liver Surgical History (Other): Dialysis TTh S Family History Family History: Family hx of DM Social History Smoker: Non-Smoker Alcohol: Denies ETOH Use Drugs: Denies Drug Use Lives In: Home Was a procedure done? Was a procedure done?: No EKG EKG : Pulse Rate (adult): 78 Cardiac Rhythm: NSR Differential Dx Considerations may include: Differential diagnoses considered include: Abdominal aortic aneurysm, PA, esophageal rupture, intestinal obstruction, mesenteric ischemia, perforated viscus or solid organ rupture, CHF with hepatomegaly, pneumonia, abscess, appendicitis, biliary disease, diverticulitis, gastritis, gastroenteritis, hepatitis, hernia, inflammatory bowel disease, pancreatitis, peptic ulcer disease, urinary tract infection, ureteral colic, constipation, GERD, irritable syndrome, abdominal wall pain, nonspecific abdominal pain, herpes zoster, nephrolithiasis. X-Ray, Labs, Meds, VS Vital Signs Date Time Temp Pulse Resp B/P (MAP) Pulse Ox O2 Delivery O2 Flow Rate FiO2 03/02/25 19:41 100 Room Air* 0 21 03/02/25 19:41 98.2 70 16 193/75 (114) 99 98.2 03/02/25 18:46 78 03/02/25 18:01 78 03/02/25 17:52 98.9 79 16 179/66 99 98.9 Lab Test 03/02/25 19:11 Range/Units White Blood Count 3.7 L 4.4-10.8 10^3/uL Red Blood Count 3.14 L 4.5-5.90 10^6/uL Hemoglobin 10.0 L 13.5-17.5 g/dL Hematocrit 29.6 L 41.0-53.0 % Mean Corpuscular Volume 94.4 80.0-100.0 fL Mean Corpuscular Hemoglobin 31.7 28.0-32.0 pg Mean Corpuscular Hemoglobin Concent 33.6 32.0-36.0 g/dL Red Cell Distribution Width 15.2 H 11.8-14.3 % Platelet Count 138 L 140-450 10^3/uL Mean Platelet Volume 8.3 6.9-10.8 fL Neutrophils (%) (Auto) 74.4 37.0-80.0 % Lymphocytes (%) (Auto) 16.4 10.0-50.0 % Monocytes (%) (Auto) 5.5 0.0-12.0 % Eosinophils (%) (Auto) 3.1 0.0-7.0 % Basophils (%) (Auto) 0.6 0.0-2.0 % Neutrophils # (Auto) 2.7 1.6-8.6 10 ^3/uL Lymphocytes # (Auto) 0.6 0.4-5.4 10 ^3/uL Monocytes # (Auto) 0.2 0-1.3 10 ^3/uL Eosinophils # (Auto) 0.1 0-0.8 10 ^3/uL Basophils # (Auto) 0 0-0.2 10 ^3/uL Nucleated Red Blood Cells 0.0 % Sodium Level 140 136-145 mmol/L Potassium Level 5.2 H 3.5-5.1 mmol/L Chloride Level 101 98-107 mmol/L Carbon Dioxide Level 26 20-31 mmol/L Anion Gap 13 5-15 Blood Urea Nitrogen 54 H 9-23 mg/dL Creatinine 8.18 H 0.700-1.30 mg/dL Glomerular Filtration Rate Calc 7 >90 mL/min BUN/Creatinine Ratio 6.6 L 10.0-20.0 Serum Glucose 116 H 74-106 mg/dL Lactic Acid Level 1.0 0.4-2.0 mmol/L Calcium Level 11.0 H 8.7-10.4 mg/dL Total Bilirubin 0.4 0.2-1.0 mg/dL Aspartate Amino Transferase (AST) 19 13-40 U/L Alanine Aminotransferase (ALT) 18 7-40 U/L Alkaline Phosphatase 273 H 46-116 U/L Total Protein 8.0 5.7-8.2 g/dL Albumin 4.6 3.2-4.8 g/dL Lipase 48 12-53 U/L Current Medications Medications (Trade) Dose Ordered Sig/George Route Start Time Stop Time Status Last Admin Tramadol HCl (Ultram) 50 mg ONCE ONCE PO 03/02/25 18:45 03/02/25 18:46 DC 03/02/25 20:03 PROCEDURE(s): ABPL - CT AB PEL WO CON-NO ORAL OR IV REASON: Nausea, vomiting, diarrhea, abdominal pain and distention ORDER NUMBER(s): [id number], ACCESSION NUMBER(s): [id number] CLINICAL HISTORY: Nausea, vomiting, diarrhea, abdominal pain and distention TECHNIQUE: CT of the abdomen and pelvis was performed without IV contrast. This exam was performed according to our departmental dose optimization program. Up-to-date CT equipment and radiation dose reduction techniques are utilized as appropriate. CTDI 9.2 DLP 522 COMPARISON: MB on DOS: 12/23/21, ABPL on DOS: 09/23/21 FINDINGS: Abdomen/Pelvis: The gallbladder, adrenal glands, spleen, and pancreas are grossly unremarkable. The liver is mildly nodular in contour. The spleen is moderately to severely enlarged, 17.1 cm in long axis. The prostate gland is moderately enlarged, measuring 5.5 cm in diameter. There are calcifications of the bilateral vas deferens. The bladder is not well distended therefore not well evaluated. The bilateral kidneys are small size with diffuse cortical thinning and extensive hypodense lesions which are incompletely characterized due to lack of IV contrast. The abdominal aorta is normal in course and caliber. There are advanced atherosclerotic calcifications. There is no free intraperitoneal air. There is a small amount of free fluid in the peritoneal cavity. There is no enlarged abdominal pelvic lymph node. There is no bowel wall thickening or dilatation. There is small to moderate fat containing umbilical hernia. Other: The imaged lower thorax demonstrates aortic valvular and coronary artery calcifications. No acute osseous abnormality is evident. There are prominent subchondral cysts of the bilateral femoral heads and acetabulum. Impression: No acute noncontrast CT abnormality in the abdomen / pelvis. Cirrhotic liver morphology. Moderate to significant splenomegaly. Small amount of ascites. Aortic valvular and coronary artery calcifications. Diabetes mellitus. Small kidneys with diffuse renal cortical thinning Time of 1ST Reevaluation: 18:40 Reevaluation 1ST: Unchanged Patient Education/Counseling: Need For Follow Up Family Education/Counseling: No Family Present SEPSIS Sepsis Screen Date sepsis recognized/suspect: Mar 02, 2025 Time Sepsis recognized/suspect: 1753 Recent Procedure: No On Antibiotic Therapy: No Respiratory Rate >20: No Heart Rate >90: No Temp<36 C (96.8 F) or >38.3 C: No SBP <90 or MAP <65 mmHG: No New Acute Mental Status Change: No Is the patient on CPAP, BIPAP,: No Physician Orders Urinalysis (03/02/25 18:31) Ct Ab Pel Wo Con-No Oral Or Iv (03/02/25 18:31) Vital Signs Date Time Temp Pulse Resp B/P (MAP) Pulse Ox O2 Delivery O2 Flow Rate FiO2 03/02/25 19:41 100 Room Air* 0 21 03/02/25 19:41 98.2 70 16 193/75 (114) 99 98.2 03/02/25 18:46 78 03/02/25 18:01 78 03/02/25 17:52 98.9 79 16 179/66 99 98.9 Laboratory Tests Test 03/02/25 19:11 Lactic Acid Level 1.0 mmol/L (0.4-2.0) White Blood Count 3.7 10^3/uL (4.4-10.8) L Medications Medications Dose Ordered Sig/George Route Start Time Stop Time Status Last Admin Dose Admin Tramadol HCl 50 mg ONCE ONCE PO 03/02/25 18:45 03/02/25 18:46 DC 03/02/25 20:03 Departure 1 Departure Time of Disposition: 20:32 Impression: Primary Impression: Abdominal pain, vomiting, and diarrhea Additional Impressions: Leukopenia End stage renal disease on dialysis Disposition: 01 HOME / SELF CARE / HOMELESS Condition: Stable Additional Instructions: INSTRUCCIONES DE KRISTAN DE Urgencias Instrucciones: Rebecca atentamente todas las instrucciones proporcionadas en nabil paquete. Pacheco recuento de glbulos blancos fue bajo hoy. Es muy importante que consulte con pacheco mdico de cabecera en los prximos bean para amara evaluacin ms exhaustiva. Hoy tuvo el potasio alto. No olvide pacheco chris de dilisis maana. Aunque le hayan dado el kristan del Departamento de Emergencias, esto no significa que tenga un "certificado de buena rico". Hoy no se sykes realizado ningn diagnstico definitivo para luci sntomas. Es posible que ests en proceso de desarrollar amara enfermedad grave. Es por eso que debe regresar al servicio de urgencias sin falta si presenta algn sntoma nuevo o que empeora (especialmente si luci sntomas incluyen dolor en el pecho, dificultad para respirar, dolor abdominal, fiebre, dolor de rosalio, confusin, dificultad para yair o caminar). Tambin es muy importante que consulte a un mdico de atencin primaria dentro de los prximos 1 a 3 bean para realizar un seguimiento. Si no puede conseguir amara chris, regrese al servicio de urgencias para amara nueva evaluacin. Dolor abdominal: instrucciones de cuidado Imagen de los cuatro cuadrantes del abdomen. Descripcin general El dolor abdominal tiene muchas causas posibles. Algunas no son graves y mejoran por s solas en unos bean. Otras requieren ms pruebas y tratamiento. Si el dol or contina o empeora, es necesario volver a examinarlo y es posible que necesite ms pruebas para averiguar qu es lo que est mal. Es posible que necesite amara ciruga para corregir el problema. No ignore los sntomas nuevos, kae fiebre, nuseas y vmitos, problemas para orinar, dolor que empeora y mareos. Estos pueden ser signos de un problema ms grave. Si no mejora, es posible que necesite ms pruebas o tratamiento. El mdico lo sykes examinado cuidadosamente, maribell pueden surgir problemas ms adelante. Si nota algn problema o sntomas nuevos, busque tratamiento mdico de inmediato . El seguimiento mdico es amara parte fundamental de pacheco tratamiento y pacheco seguridad. Asegrese de programar y acudir a todas las citas, y llame a pacheco mdico si tiene problemas. Tambin es amara buena idea saber los resultados de luci pruebas y llevar amara lista de los medicamentos que abbi. Assistant Head Cashier puedes cuidarte en casa? Descansa hasta que te sientas mejor. Para prevenir la deshidratacin, doin abundante lquido. Elija agua y otros lquidos florentin hasta que se sienta mejor. Si tiene amara enfermedad renal, cardaca o heptica y debe limitar los lquidos, consulte con pacheco mdico antes de aumentar la cantidad de lquidos que alva. Cuando sientas ganas de comer, empieza con pequeas cantidades. No tomes alcohol, cafena ni alimentos picantes, calientes o con alto contenido de grasa tiffanie eloise o dos bean. Evite los medicamentos antiinflamatorios kae la aspirina, el ibuprofeno (Advil, Motrin) y el naproxeno (Aleve). Pueden causar malestar estomacal. Hable con pacheco mdico si abbi aspirina a diario por otro problema de rico. Cundo debes pedir ayuda? Llame al 911 en cualquier momento en que crea que puede necesitar atencin de emergencia. Por ejemplo, llame si: Te desmayaste (perdiste el conocimiento). Tiene heces de color marrn o con juhi yevgeniy. Vomitas yevgeniy o lo que parecen posos de caf. Tienes un dolor intenso en el vientre. Llame a pacheco mdico ahora o busque atencin mdica inmediata si: El dolor empeora, especialmente si se concentra en amara robin determinada del abdomen. Tiene fiebre nueva o ms kristan. Las heces son negras y parecen alquitrn, o tienen vetas de yevgeniy. Tienes sangrado vaginal inesperado. Tiene sntomas de amara infeccin del tracto urinario. Estos pueden incluir: Dolor al orinar. Orinar con ms frecuencia de lo habitual. Yevgeniy en la orina. Se siente mareado o aturdido, o siente que se puede desmayar. Preste atencin a los cambios en pacheco rico y asegrese de comunicarse con pacheco mdico si: No ests mejorando kae esperabas. Crditos para el dolor abdominal: instrucciones de cuidado Actualizado al: 2023 Autor: Personal de [facility] [email or web address], [facility] Comments 59-year-old male presented with abdominal pain. No peritoneal signs on abdominal exam. No evidence of acute abdomen at this time. patient is well appearing. Labs show no leukocytosis . Imaging shows no acute process. at the time of discharge patient is afebrile and is not hypotensive. His pain has improved. Low suspicion for acute hepatobiliary disease (including acute cholecystitis, acute pancreatitis, PUD (including perforation), acute infectious process (pneumonia, hepatitis, pyelonephritis), acute appendicitis, vascular catastrophe, bowel obstructions, viscous perforation. Presentation not consistent with other acute, emergent causes of abdominal pain at this time. Patient felt stable for discharge home to follow up with the primary care provider promptly. Discussed abnormal results with the patient and the importance of follow up for further evaluation Patient advised to return to the emergency department with any new, worsening or concerning symptoms. Critical Care Note Critical Care Time?: No Stability Stability form required: No Heart Score Heart Score: Heart Score Response (Comments) Value History N/A 0 EKG N/A 0 Age N/A 0 Risk Factors N/A 0 Troponin N/A 0 Total 0 I personally scribed for FRANDY RIVERA MD ([email or web address]) on 03/02/25 at 18:46. Electronically submitted by Clark Gregg ([employer]). I personally scribed for FRANDY RIVERA MD ([email or web address]) on 03/02/25 at 19:40. Electronically submitted by Clark Gregg ([employer]). FRANDY RIVERA MD Mar 02, 2025 18:46
[2025-03-02 19:34] LABS: Hematocrit 29.6 % (41.0-53.0); Hemoglobin 10.0 g/dL (13.5-17.5); Mean Corpuscular Hemoglobin 31.7 pg (28.0-32.0); Mean Corpuscular Volume 94.4 fL (80.0-100.0); Nucleated Red Blood Cells % 0.0 %
--- NOTE | 2025-03-02 19:35 | DVH ---
CLINICAL HISTORY: Nausea, vomiting, diarrhea, abdominal pain and distention TECHNIQUE: CT of the abdomen and pelvis was performed without IV contrast. This exam was performed according to our departmental dose optimization program. Up-to-date CT equipment and radiation dose reduction techniques are utilized as appropriate. CTDI 9.2 DLP 522 COMPARISON: MBHL on DOS: 12/23/21, ABPL on DOS: 09/23/21 FINDINGS: Abdomen/Pelvis: The gallbladder, adrenal glands, spleen, and pancreas are grossly unremarkable. The liver is mildly nodular in contour. The spleen is moderately to severely enlarged, 17.1 cm in long axis. The prostate gland is moderately enlarged, measuring 5.5 cm in diameter. There are calcifications of the bilateral vas deferens. The bladder is not well distended therefore not well evaluated. The bilateral kidneys are small size with diffuse cortical thinning and extensive hypodense lesions which are incompletely characterized due to lack of IV contrast. The abdominal aorta is normal in course and caliber. There are advanced atherosclerotic calcifications. There is no free intraperitoneal air. There is a small amount of free fluid in the peritoneal cavity. There is no enlarged abdominal pelvic lymph node. There is no bowel wall thickening or dilatation. There is small to moderate fat containing umbilical hernia. Other: The imaged lower thorax demonstrates aortic valvular and coronary artery calcifications. No acute osseous abnormality is evident. There are prominent subchondral cysts of the bilateral femoral heads and acetabulum. Impression: No acute noncontrast CT abnormality in the abdomen / pelvis. Cirrhotic liver morphology. Moderate to significant splenomegaly. Small amount of ascites. Aortic valvular and coronary artery calcifications. Diabetes mellitus. Small kidneys with diffuse renal cortical thinning
[2025-03-02 19:41] VITALS: BP 193/75; PULSE 70; RESP 16; TEMP 98.2; O2SAT 100
[2025-03-02 19:45] LABS: Alanine Aminotransferase 18 U/L (7-40); Albumin 4.6 g/dL (3.2-4.8); Alkaline Phosphatase 273 U/L (46-116); Anion Gap 13 (5-15); BUN/Creatinine Ratio 6.6 (10.0-20.0); Bilirubin, Total 0.4 mg/dL (0.2-1.0); Blood Urea Nitrogen 54 mg/dL (9-23); Calcium 11.0 mg/dL (8.7-10.4); Carbon Dioxide 26 mmol/L (20-31); Chloride 101 mmol/L (98-107); Glucose 116 mg/dL (74-106); Lipase 48 U/L (12-53); Potassium 5.2 mmol/L (3.5-5.1); Sodium 140 mmol/L (136-145); Total Protein 8.0 g/dL (5.7-8.2)
== END 2025-03-02 21:35 | disposition home or self-care (01) ==
LOC: ER 17:50
DX: R10.13 Epigastric pain (principal); R11.2 Nausea with vomiting, unspecified; R19.7 Diarrhea, unspecified; D72.819 Decreased white blood cell count, unspecified; I12.0 Hypertensive chronic kidney disease with stage 5 chronic kidney disease or end stage renal disease; E11.22 Type 2 diabetes mellitus with diabetic chronic kidney disease; N18.6 End stage renal disease; F32.A Depression, unspecified; F41.9 Anxiety disorder, unspecified; E78.5 Hyperlipidemia, unspecified; I25.10 Atherosclerotic heart disease of native coronary artery without angina pectoris; Z79.899 Other long term (current) drug therapy; Z99.2 Dependence on renal dialysis; Z79.01 Long term (current) use of anticoagulants
CPT/HCPCS: 36415; 74176; 80053; 83605; 83690; 85025; 93005